=== PATIENT | male | born 1945 | race Caucasian/White ===

== ENCOUNTER 2016-03-27 10:52 | Inpatient (IN) | payer MEDICARE ==
--- NOTE | 2016-03-27 11:35 | ED ---
SOB HPI - General Chief Complaint: Shortness of Breath Stated Complaint: SOB Time Seen by Provider: 03/27/16 11:21 Source: EMS Mode of arrival: EMS Limitations: no limitations - History of Present Illness Initial Comments: Patient is a 70-year-old man who has history of previous COPD and possibly also CHF who states that over the past probably 2 weeks he's finding he has increasing exertional dyspnea and over the past few days has not been able to sleep at night. He states when he tries to sleep he wakes up with shortness of breath. He states that through most the day he is fine but between particularly 3 AM and 9 AM pain is very short of breath. He is not able lie flat. He denies fever or chill, cough, chest pain, leg pain or swelling, change in urination. No melena or bloody stool Complaint: shortness of breath -: days(s) Severity: moderate Consistency: intermittent Improves With: nothing Worsens With: lying flat Known History Of: COPD Associated Symptoms: denies other symptoms Treatments Prior to Arrival: oxygen - Related Data Home Oxygen Therapy: Yes Home Medications Medication Instructions Recorded Confirmed Aspirin 81 mg PO DAILY 06/27/13 03/27/16 Lansoprazole 30 mg PO QA 06/27/13 03/27/16 Metoprolol Succinate [Toprol XL] 50 mg PO QA 06/27/13 03/27/16 Pravastatin Sodium [Pravachol] 80 mg PO DAILY 06/27/13 03/27/16 Amiodarone HCl 200 mg PO QA 06/28/13 03/27/16 Furosemide [Lasix] 40 mg PO AC-SUPPER 11/23/15 03/27/16 Furosemide [Lasix] 80 mg PO QAM 11/23/15 03/27/16 Montelukast [Singulair] 10 mg PO HS 11/23/15 03/27/16 Acetaminophen Tab [Tylenol Tab] 975 mg PO Q4H PRN 03/27/16 03/27/16 sitaGLIPtin [Januvia] 100 mg PO DAILY 03/27/16 03/27/16 Allergies Allergy/AdvReac Type Severity Reaction Status Date / Time Penicillins Allergy Rash/Hives Verified 03/27/16 11:26 Review of Systems ROS Statement: Those systems with pertinent positive or pertinent negative responses have been documented in the HPI. ROS Other: All systems not noted in ROS Statement are negative. Constitutional: Denies: fever, chills, weakness Respiratory: Reports: cough, dyspnea, wheezes. Denies: hemoptysis, stridor Cardiovascular: Reports: orthopnea. Denies: chest pain, palpitations, edema, syncope Gastrointestinal: Denies: abdominal pain, vomiting, diarrhea Musculoskeletal: Denies: back pain Skin: Denies: rash Neurological: Denies: headache Past Medical History Past Medical History: Atrial Fibrillation, Coronary Artery Disease (CAD), GERD/ Reflux, Hyperlipidemia, Hypertension, Myocardial Infarction (CT), Prostate Disorder, Respiratory Disorder Additional Past Medical History / Comment(s): EMPHYSEMA, ENLARGED PROSTATE Last Myocardial Infarction Date:: UNK History of Any Multi-Drug Resistant Organisms: None Reported Past Surgical History: AICD, Cholecystectomy, Coronary Bypass/CABG, Heart Catheterization, Pacemaker, Prostate Surgery Additional Past Surgical History / Comment(s): CABG-3 VESSEL Past Anesthesia/Blood Transfusion Reactions: No Reported Reaction Additional Past Anesthesia/Blood Transfusion Reaction / Comment(s): GETS ANXIOUS WITH ANESTHESIA Type of Cardiac Device: AICD, Unknown Device Placement Date:: UNK initial placement, batteries replaced Oct 2013, LFT CHEST Past Psychological History: No Psychological Hx Reported Smoking Status: Former smoker Past Alcohol Use History: None Reported Additional Past Alcohol Use History / Comment(s): QUIT SMOKING APPROX 2003, STARTED SMOKING AT APPROX 11 YRS OF AGE Past Drug Use History: None Reported - Past Family History Father Family Medical History: Cancer Mother History Unknown: Yes General Exam Limitations: no limitations General appearance: alert, in no apparent distress Head exam: Present: atraumatic, normocephalic Eye exam: Present: normal appearance. Absent: scleral icterus, conjunctival injection Neck exam: Present: normal inspection, full ROM Respiratory exam: Present: wheezes. Absent: respiratory distress, rales, rhonchi, stridor, accessory muscle use, decreased breath sounds, prolonged expiratory Cardiovascular Exam: Present: regular rate, normal rhythm, normal heart sounds. Absent: systolic murmur, diastolic murmur, rubs, gallop GI/Abdominal exam: Present: soft. Absent: distended, tenderness, guarding, rebound, mass Extremities exam: Present: normal inspection, normal capillary refill. Absent: pedal edema, calf tenderness Back exam: Present: normal inspection. Absent: CVA tenderness (R), CVA tenderness (L) Neurological exam: Present: alert Skin exam: Present: warm, dry, intact, normal color. Absent: rash Course Vital Signs 03/27/16 03/27/16 03/27/16 10:58 11:00 12:11 Temperature 97.8 F Pulse Rate 69 58 L Respiratory 18 20 Rate Blood Pressure 162/87 O2 Sat by Pulse 98 Oximetry 03/27/16 03/27/16 03/27/16 12:23 13:00 13:41 Temperature 97.8 F Pulse Rate 57 L 61 57 L Respiratory 20 Rate Blood Pressure 158/89 O2 Sat by Pulse 98 Oximetry 03/27/16 03/27/16 03/27/16 13:49 15:01 15:03 Temperature 98.2 F Pulse Rate 61 68 Respiratory 20 Rate Blood Pressure 108/68 O2 Sat by Pulse 86 L 94 L Oximetry 03/27/16 03/27/16 03/27/16 15:55 15:57 16:00 Temperature 98.3 F Pulse Rate 68 62 Respiratory 18 18 Rate Blood Pressure 147/68 O2 Sat by Pulse 96 Oximetry 03/27/16 16:04 Temperature Pulse Rate 60 Respiratory Rate Blood Pressure O2 Sat by Pulse Oximetry Medical Decision Making - Lab Data Result diagrams: 03/27/16 11:19 03/28/16 02:36 Lab Results 03/27/16 03/27/16 03/27/16 Range/Units 11:19 11:19 11:19 WBC 11.3 H (3.8-10.6) k/uL RBC 5.28 (4.30-5.90) m/uL Hgb 16.6 (13.0-17.5) gm/dL Hct 51.6 (39.0-53.0) % MCV 97.7 (80.0-100.0) fL MCH 31.4 (25.0-35.0) pg MCHC 32.2 (31.0-37.0) g/dL RDW 13.8 (11.5-15.5) % Plt Count 183 (150-450) k/uL Neutrophils % 72 % Lymphocytes % 18 % Monocytes % 6 % Eosinophils % 1 % Basophils % 1 % Neutrophils # 8.2 H (1.3-7.7) k/uL Lymphocytes # 2.0 (1.0-4.8) k/uL Monocytes # 0.7 (0-1.0) k/uL Eosinophils # 0.1 (0-0.7) k/uL Basophils # 0.1 (0-0.2) k/uL D-Dimer 0.53 (<0.60) mg/L FEU Sodium 144 (137-145) mmol/L Potassium 4.4 (3.5-5.1) mmol/L Chloride 101 (98-107) mmol/L Carbon Dioxide 31 H (22-30) mmol/L Anion Gap 12 mmol/L BUN 19 (9-20) mg/dL Creatinine 1.00 (0.66-1.25) mg/dL Est GFR (MDRD) Af Amer >60 (>60 ml/min/1.73 sqM) Est GFR (MDRD) Non-Af >60 (>60 ml/min/1.73 sqM) Glucose 104 H (74-99) mg/dL Estimated Ave Glu mg/dL mg/dL Hemoglobin A1c (4.2-6.1) % Calcium 9.6 (8.4-10.2) mg/dL Total Bilirubin 0.7 (0.2-1.3) mg/dL AST 27 (17-59) U/L ALT 33 (21-72) U/L Alkaline Phosphatase 80 (38-126) U/L Troponin I (0.000-0.034) ng/mL NT-Pro-B Natriuret Pep pg/mL Total Protein 7.3 (6.3-8.2) g/dL Albumin 4.2 (3.5-5.0) g/dL 03/27/16 03/27/16 03/27/16 Range/Units 11:19 11:19 11:19 WBC (3.8-10.6) k/uL RBC (4.30-5.90) m/uL Hgb (13.0-17.5) gm/dL Hct (39.0-53.0) % MCV (80.0-100.0) fL MCH (25.0-35.0) pg MCHC (31.0-37.0) g/dL RDW (11.5-15.5) % Plt Count (150-450) k/uL Neutrophils % % Lymphocytes % % Monocytes % % Eosinophils % % Basophils % % Neutrophils # (1.3-7.7) k/uL Lymphocytes # (1.0-4.8) k/uL Monocytes # (0-1.0) k/uL Eosinophils # (0-0.7) k/uL Basophils # (0-0.2) k/uL D-Dimer (<0.60) mg/L FEU Sodium (137-145) mmol/L Potassium (3.5-5.1) mmol/L Chloride (98-107) mmol/L Carbon Dioxide (22-30) mmol/L Anion Gap mmol/L BUN (9-20) mg/dL Creatinine (0.66-1.25) mg/dL Est GFR (MDRD) Af Amer (>60 ml/min/1.73 sqM) Est GFR (MDRD) Non-Af (>60 ml/min/1.73 sqM) Glucose (74-99) mg/dL Estimated Ave Glu mg/dL 137 mg/dL Hemoglobin A1c 6.4 H (4.2-6.1) % Calcium (8.4-10.2) mg/dL Total Bilirubin (0.2-1.3) mg/dL AST (17-59) U/L ALT (21-72) U/L Alkaline Phosphatase (38-126) U/L Troponin I 0.033 (0.000-0.034) ng/mL NT-Pro-B Natriuret Pep 2010 pg/mL Total Protein (6.3-8.2) g/dL Albumin (3.5-5.0) g/dL - EKG Data -: EKG Interpreted by Me EKG shows normal: intervals (Normal for paced rhythm) Rate: normal (68 bpm) Interpretation: other (Paced rhythm) Disposition Clinical Impression: Congestive heart failure, COPD exacerbation Disposition: ADMITTED IP TO THIS [facility] Condition: Fair
[2016-03-27 11:51] LABS: Basophils # (A) 0.1 k/uL (0-0.2); Basophils % (A) 1 %; CH 31.5; CHCM 32.4; Eosinophils # (A) 0.1 k/uL (0-0.7); Eosinophils % (A) 1 %; HCT 51.6 % (39.0-53.0); HDW 2.35; HGB 16.6 gm/dL (13.0-17.5); Luc # (Auto) 0.28; Luc % (Auto) 3; Lymphocytes % (A) 18 %; MCH 31.4 pg (25.0-35.0); MCHC 32.2 g/dL (31.0-37.0); MCV 97.7 fL (80.0-100.0); Mean Platelet Volume 7.7; Monocytes # (A) 0.7 k/uL (0-1.0); Monocytes % (A) 6 %; Neutrophils # (A) 8.2 k/uL (1.3-7.7); Neutrophils % (A) 72 %; RBC 5.28 m/uL (4.30-5.90); RDW 13.8 % (11.5-15.5); WBC 11.3 k/uL (3.8-10.6); WBC (Perox) 11.13
[2016-03-27] MEDS ORDERED: ALBUTEROL NEBULIZED 2.5 MG/3 ML INHALATION STA ×2 (11:57→13:25)
[2016-03-27] MEDS ORDERED: IPRATROPIUM-ALBUTEROL 3 ML NEB INHALATION STA (11:57)
[2016-03-27 12:03] LABS: ALT 33 U/L (21-72); AST 27 U/L (17-59); Alkaline Phosphatase 80 U/L (38-126); Anion Gap 12 mmol/L; Blood Urea Nitrogen 19 mg/dL (9-20); Calcium 9.6 mg/dL (8.4-10.2); Carbon Dioxide 31 mmol/L (22-30); Chloride 101 mmol/L (98-107); Glucose 104 mg/dL (74-99); Non-African American GFR(MDRD) >60 (>60 ml/min/1.73 sqM); Potassium 4.4 mmol/L (3.5-5.1); Sodium 144 mmol/L (137-145); Total Bilirubin 0.7 mg/dL (0.2-1.3); Total Protein 7.3 g/dL (6.3-8.2)
--- NOTE | 2016-03-27 12:04 | XR ---
EXAMINATION TYPE: XR chest 2V DATE OF EXAM: 03/27/2016 11:48 AM COMPARISON: Prior chest x-ray 21 May 2015 HISTORY: Difficulty breathing, shortness of breath and coronary artery disease TECHNIQUE: Frontal and lateral views of the chest are obtained. FINDINGS: The patient is post median sternotomy, intracardiac defibrillator leads are stable. The he art remains enlarged. Interstitium is mildly increased. There is blunting of the right costophrenic a ngle greater than left. No evident pneumothorax. Prominent lung volume compatible with underlying [employer] D. IMPRESSION: Correlate for pulmonary venous hypertension and interstitial edema in a patient with pre -existing COPD. There may be small effusions, follow-up suggested.
[2016-03-27] MEDS ORDERED: FUROSEMIDE 10 MG/ML 4 ML VIAL IV STA (13:10)
[2016-03-27] MEDS ORDERED: predniSONE 20 MG TAB PO STA (15:15)
[2016-03-27] MEDS ORDERED: FUROSEMIDE 10 MG/ML 4 ML VIAL IV SCH (15:15)
[2016-03-27] MEDS ORDERED: ALBUTEROL NEBULIZED 2.5 MG/3 ML INHALATION PRN (15:15)
[2016-03-27] MEDS: IPRATROPIUM-ALBUTEROL 3 ML NEB INHALATION SCH ×2 (15:57→20:13)
[2016-03-27 17:14] LABS: Glucose,Whole Blood 102 mg/dL (75-99)
[2016-03-27] MEDS: INSULIN LISPRO (humaLOG) 300 UNIT/3 ML VIAL SQ SCH ×2 (17:34→21:29)
[2016-03-27] MEDS: NITROGLYCERIN OINT 1 INCH/GM PACKET TOPICAL SCH ×2 (17:45→21:04)
--- NOTE | 2016-03-27 18:09 | HP ---
DATE OF ADMISSION: The patient is a very pleasant gentleman came in with complaints of shortness of breath that started yesterday. The patient woke up from sleep from that and the patient denied any orthopnea although clearly denied any orthopnea or PND. The patient denied any cough. No fever or chills. The patient feels like his abdomen is bloated. The patient started having shortness of breath secondary to that. The patient denied any cough. Patient denied any headache, dysuria. Patient is afebrile. Patient was found to have very minimally elevated JVD although it may have improved. Patient does have diagnosis of congestive heart failure. Appears to have cardiomyopathy, because of which patient has an AICD from previous dictation from Dr. Benson, I did not find any other cardiology dictations or echocardiogram available at this point of time although patient was told his EF was 50 or 60% by Dr. Hall who follows with the patient as an outpatient. Patient although is on 80 mg in the morning and 40 mg of Lasix ( ). Patient's BNP is 2000. I do not have any previous BNP to compare with at this time. Kidney function is essentially within normal limits. Patient does not have significant wheezing but extreme shortness of breath, although saturating at 98% on 2 liter, does not use any oxygen at home. The patient ( ) on 2 liters. D-dimer is negative because of which I am not obtaining a CT for pulmonary embolism. Patient denied any chest pain. REVIEW OF SYSTEMS: CONSTITUTIONAL: No fever, no malaise, no fatigue. HEENT: No recent visual problems or hearing problems. Denied any sore throat. CARDIOVASCULAR: As mentioned in history of present illness. PULMONARY: No shortness of breath, no cough, no hemoptysis. GASTROINTESTINAL: No diarrhea, no nausea, no vomiting, no abdominal pain. Normoactive bowel sounds. NEUROLOGICAL: No headaches, no weakness, no numbness. HEMATOLOGICAL: Denies any bleeding or petechiae. GENITOURINARY: Denies any burning micturition, frequency, or urgency. MUSCULOSKELETAL/RHEUMATOLOGICAL: Denies any joint pain, swelling, or any muscle pain. ENDOCRINE: Denies any polyuria or polydipsia. The rest of the 14 point review of systems is negative. Home medications include: 1. Aspirin. 2. ( ). 3. Metoprolol. 4. Pravastatin. 5. Amiodarone. 6. Lasix. 7. Montelukast. 8. Acetaminophen. 9. Sitagliptin. ALLERGIES: ALLERGIC TO PENICILLIN. PAST MEDICAL HISTORY: History of atrial fibrillation as per the documentation although patient ( ) the patient has paced rhythm now, not on anticoagulation but the patient is on Amiodarone. Coronary artery disease, gastroesophageal reflux disease. As per the previous dictations patient has ischemic cardiomyopathy, hypertension, benign prostatic hypertrophy, AICD placement, coronary artery bypass grafting, cardiac catheterization, cholecystectomy, prostate surgery, pacemaker placement, CABG, previous ( ) in the past. SOCIAL HISTORY: Former smoker. Quit smoking years ago. Denied any alcohol abuse or any drug abuse. FAMILY HISTORY: Significant for cancer in father. PHYSICAL EXAMINATION: VITAL SIGNS: Temperature 97.2, pulse of 69, respiratory rate 20, pulse of 58 and blood pressure is 162/70, saturating at 98% on room air. GENERAL: The patient is alert and oriented x3, not in any acute distress. Well developed, well nourished. HEENT: Pupils are round and equally reacting to light. EOMI. No scleral icterus. No conjunctival pallor. Normocephalic, atraumatic. No pharyngeal erythema. No thyromegaly. CARDIOVASCULAR: Patient has very minimal JVD elevation about 2 to 3 cm above the sternoclavicular line. I did not hear any clear-cut S3 or any other murmurs, rubs, or gallops. The patient does not have pedal edema. PULMONARY: Chest is clear to auscultation, no wheezing or crackles. ABDOMEN: Soft, nontender, nondistended, normoactive bowel sounds. No palpable organomegaly. MUSCULOSKELETAL: No joint swelling or deformity. EXTREMITIES: No cyanosis, clubbing, or pedal edema. NEUROLOGICAL: Gross neurological examination did not reveal any focal deficits. SKIN: No rashes. LABORATORY DATA: CBC CMP are abnormal for mildly elevated WBC count 11,300. BUN of 19, creatinine of 1.0. Troponins are essentially within normal limits, EKG showed pacer rhythm as mentioned above. ASSESSMENT AND PLAN: 1. Shortness of breath, hypoxic respiratory failure, unsure of the exact etiology, ( ) congestive heart failure exacerbation. Chest x-ray is consistent with that. D. dimer as mentioned earlier. The patient although may have minimal ( ) exacerbation I will start him on 60 b.i.d. of Lasix. I do not believe patient has any chronic obstructive pulmonary disease exacerbation ( ) carries a diagnosis. 2. Chronic obstructive pulmonary disease with without any significant exacerbation and continue present medications. 3. History of myocardial infarction and questionable history of cardiomyopathy. We will obtain an echocardiogram. Also consult Cardiology. 4. Questionable history of atrial fibrillation, not on anticoagulation at this point of time. Patient follows with cardiology so probably can get medical records from them. 5. Hyperlipidemia. 6. Hypertension. 7. Gastroesophageal reflux disease. For above-mentioned chronic medical problems I will go ahead and continue his home medications and patient has coronary artery disease in the past and management for his CAD will continue with his home medications.
[2016-03-27] MEDS: MONTELUKAST 10 MG TAB PO SCH (21:03)
[2016-03-27] MEDS: FUROSEMIDE 10 MG/ML 10 ML VIAL IV SCH (21:04)
[2016-03-27 21:27] LABS: Glucose,Whole Blood 167 mg/dL (75-99)
[2016-03-27 21:44] LABS: Hemoglobin A1C 6.4 % (4.2-6.1)
[2016-03-28] MEDS: IPRATROPIUM-ALBUTEROL 3 ML NEB INHALATION SCH ×5 (02:51→19:11)
[2016-03-28 03:02] LABS: Chloride 99 mmol/L (98-107); Glucose 149 mg/dL (74-99); Potassium 4.5 mmol/L (3.5-5.1); Total Protein 6.9 g/dL (6.3-8.2)
[2016-03-28 03:03] LABS: ALT 38 U/L (21-72); AST 26 U/L (17-59); Alkaline Phosphatase 70 U/L (38-126); Anion Gap 13 mmol/L; Blood Urea Nitrogen 24 mg/dL (9-20); Calcium 9.6 mg/dL (8.4-10.2); Carbon Dioxide 26 mmol/L (22-30); Non-African American GFR(MDRD) >60 (>60 ml/min/1.73 sqM); Sodium 138 mmol/L (137-145); Total Bilirubin 0.6 mg/dL (0.2-1.3)
[2016-03-28 07:17] LABS: Glucose,Whole Blood 126 mg/dL (75-99)
[2016-03-28] MEDS: INSULIN LISPRO (humaLOG) 300 UNIT/3 ML VIAL SQ SCH ×4 (07:27→21:39)
--- NOTE | 2016-03-28 08:35 | ECHOF ---
Referral Reason:CHF MEASUREMENTS -------- HEIGHT: 165.1 cm WEIGHT: 82.1 kg BP: 108/68 IVSd: 1.4 cm (0.6 - 1.1) LVIDd: 5.3 cm (3.9 - 5.3) LVPWd: 1.3 cm (0.6 - 1.1) IVSs: 2.5 cm LVIDs: 4.4 cm LVPWs: 1.7 cm Ao Diam: 2.7 cm (2.0 - 3.7) AV Cusp: 1.5 cm (1.5 - 2.6) LA Diam: 4.6 cm (2.7 - 3.8) MV EXCURSION: 10.412 mm (> 18.000) MV EF SLOPE: 29 mm/s (70 - 150) EPSS: 2.2 cm MV E Kamron: 0.59 m/s MV DecT: 216 ms MV A Kamron: 0.41 m/s MV E/A Ratio: 1.45 RAP: 5.00 mmHg RVSP: 31.92 mmHg FINDINGS -------- Pacerwire seen in RV and RA. AICD This was a technically good study. There is mild concentric left ventricular hypertrophy. There is severe global hypokinesis of LV . The calculated left ventricular ejection fraction is 33%. Overall left ventricular systolic function is severely impaired with, an EF < 20%. The right ventricle is normal in size and function. The left atrium is mildly dilated. The right atrium is normal in size. Aortic valve is trileaflet and is mildly thickened. The mitral valve leaflets are mildly thickened. There is trace mitral regurgitation. Mild tricuspid regurgitation present. The right ventricular systolic pressure, as measured by Doppler, is 31.92mmHg. Pulmonic valve appears structurally normal. The aortic root, ascending aorta and aortic arch are normal. The pericardium is normal. CONCLUSIONS -------- 1. Pacerwire seen in RV and RA. 2. The right atrium is normal in size. 3. Aortic valve is trileaflet and is mildly thickened. 4. The mitral valve leaflets are mildly thickened. 5. There is trace mitral regurgitation. 6. Mild tricuspid regurgitation present. 7. The right ventricular systolic pressure, as measured by Doppler, is 31.92mmHg. 8. Pulmonic valve appears structurally normal. 9. The aortic root, ascending aorta and aortic arch are normal. 10. The pericardium is normal. 11. AICD 12. This was a technically good study. 13. There is mild concentric left ventricular hypertrophy. 14. There is severe global hypokinesis of LV . 15. The calculated left ventricular ejection fraction is 33%. 16. Overall left ventricular systolic function is severely impaired with, an EF < 20%. 17. The right ventricle is normal in size and function. 18. The left atrium is mildly dilated. BUFFING WHEEL OPERATOR: Emma Carrera RDCS
[2016-03-28] MEDS: PANTOPRAZOLE 40 MG TABLET PO SCH (09:16)
[2016-03-28] MEDS: FUROSEMIDE 10 MG/ML 10 ML VIAL IV SCH (09:16)
[2016-03-28] MEDS: LINAGLIPTIN 5 MG TABLET PO SCH (09:16)
[2016-03-28] MEDS: AMIODARONE 200 MG TAB PO SCH (09:16)
[2016-03-28] MEDS: PRAVASTATIN SODIUM 80 MG TAB PO SCH (09:17)
[2016-03-28] MEDS: NITROGLYCERIN OINT 1 INCH/GM PACKET TOPICAL SCH (09:17)
[2016-03-28] MEDS: predniSONE 20 MG TAB PO SCH (09:17)
[2016-03-28] MEDS: METOPROLOL SUCCINATE (ER) 50 MG TAB.ER.24H PO SCH (09:17)
--- NOTE | 2016-03-28 09:34 | P.CRDCN ---
History of Present Illness Consult date: 03/28/16 History of present illness: This is a 70-year-old gentleman with history of coronary artery disease and previous bypass surgery in 2004. He also has ischemic cardiomyopathy and AICD and biventricular device implantation who follows with Dr. VC Hall regularly. Patient also had a left carotid endarterectomy in the past. Patient is now admitted to the hospital with complaints of increasing shortness of breath of one to 2 weeks' duration. Treatment as an outpatient was unsuccessful. On admission patient was found to be in congestive heart failure with evidence of of elevated BNP. Patient was given IV Lasix with improvement of his symptoms. Patient's Lasix dose was recently cut back because of increasing BUN/ creatinine. Patient is also taken off the lisinopril because of low blood pressure and dizziness. At this point and his Lasix could be converted to by mouth Lasix and probably should take 80 mg by mouth twice a day. We'll start him on lisinopril 2.5 mg daily. I will discontinue Nitropaste. Increase activity as tolerated. If he remains stable possible discharge within next 24 hours. His EKG showed pacer rhythm. Review of Systems REVIEW OF SYSTEMS: CONSTITUTIONAL:. Patient is doing well. No complaints of fever or chills EYES: Denies diplopia, blurring of vision EARS, NOSE, MOUTH, THROAT: Denies headaches, denies sore throat. CARDIOVASCULAR: As per HPI RESPIRATORY: Denies shortness of breath, denies cough. GASTROINTESTINAL: Denies change in appetite, denies abdominal pain, denies diarrhea GENITOURINARY: Denies hematuria, denies infections. MUSKULOSKELETAL: Denies pain, denies swelling. Denies any cramps or claudication INTEGUMENTARY: Denies rash, denies eczema. NEUROLOGICAL: Denies focal weakness, or visual disturbance. Denies any dizziness or syncope PSYCHIATRIC: Denies anxiety, denies depression. HEMATOLOGIC/LYMPHATIC: Denies any bleeding, denies enlarged lymph nodes. Past Medical History Past Medical History: Atrial Fibrillation, Coronary Artery Disease (CAD), GERD/ Reflux, Hyperlipidemia, Hypertension, Myocardial Infarction ([place]), Prostate Disorder, Respiratory Disorder Additional Past Medical History / Comment(s): EMPHYSEMA, ENLARGED PROSTATE Last Myocardial Infarction Date:: UNK History of Any Multi-Drug Resistant Organisms: None Reported Past Surgical History: AICD, Cholecystectomy, Coronary Bypass/CABG, Heart Catheterization, Pacemaker, Prostate Surgery Additional Past Surgical History / Comment(s): CABG-3 VESSEL Past Anesthesia/Blood Transfusion Reactions: No Reported Reaction Additional Past Anesthesia/Blood Transfusion Reaction / Comment(s): GETS ANXIOUS WITH ANESTHESIA Type of Cardiac Device: AICD, Unknown Device Placement Date:: UNK initial placement, batteries replaced Oct 2013, LFT CHEST Past Psychological History: No Psychological Hx Reported Additional Psychological History / Comment(s): PT SERVED IN [employer] WHEN HE LIVED IN [facility]. RETIRED FROM WORKING IN [employer]. 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 RECIEVES NO OUTSIDE SERVICES, USES NO CANE OR WALKER AND [place]. Smoking Status: Former smoker Past Alcohol Use History: None Reported Additional Past Alcohol Use History / Comment(s): QUIT SMOKING APPROX 2003, STARTED SMOKING AT APPROX 11 YRS OF AGE Past Drug Use History: None Reported - Past Family History Mother History Unknown: Yes Father Family Medical History: Cancer Medications and Allergies Home Medications Medication Instructions Recorded Confirmed Type Aspirin 81 mg PO DAILY 06/27/13 03/27/16 History Lansoprazole 30 mg PO QAM 06/27/13 03/27/16 History Metoprolol Succinate [Toprol XL] 50 mg PO QAM 06/27/13 03/27/16 History Pravastatin Sodium [Pravachol] 80 mg PO DAILY 06/27/13 03/27/16 History Amiodarone HCl 200 mg PO QAM 06/28/13 03/27/16 History Furosemide [Lasix] 40 mg PO AC-SUPPER 11/23/15 03/27/16 History Furosemide [Lasix] 80 mg PO QAM 11/23/15 03/27/16 History Montelukast [Singulair] 10 mg PO HS 11/23/15 03/27/16 History Acetaminophen Tab [Tylenol Tab] 975 mg PO Q4H PRN 03/27/16 03/27/16 History sitaGLIPtin [Januvia] 100 mg PO DAILY 03/27/16 03/27/16 History Allergies Allergy/AdvReac Type Severity Reaction Status Date / Time Penicillins Allergy Rash/Hives Verified 03/27/16 11:26 Physical Exam Vitals: Vital Signs Temp Pulse Pulse Pulse Resp BP BP 03/28/16 08:51 68 03/28/16 08:39 68 03/28/16 07:00 97.6 F 78 19 119/76 03/28/16 03:00 62 03/28/16 02:51 64 03/28/16 00:00 18 03/27/16 23:00 97.8 F 74 16 03/27/16 20:24 64 03/27/16 20:13 64 03/27/16 16:04 60 03/27/16 16:00 18 03/27/16 15:57 62 03/27/16 15:55 98.3 F 68 18 147/68 Pulse Ox 03/28/16 08:51 03/28/16 08:39 03/28/16 07:00 92 L 03/28/16 03:00 03/28/16 02:51 03/28/16 00:00 03/27/16 23:00 94 L 03/27/16 20:24 03/27/16 20:13 03/27/16 16:04 03/27/16 16:00 03/27/16 15:57 03/27/16 15:55 96 Intake and Output 03/27/16 03/28/16 03/28/16 22:59 06:59 14:59 Other: # Voids 1 3 Weight 82 kg GENERAL EXAM: Patient is alert and oriented and doesn't appear to be in any acute distress HEENT: Normocephalic. Normal reaction of pupils, equal size, normal range of extraocular motion. No erythema or exudates in the throat. NECK: No masses, no nuchal rigidity. CHEST: No chest wall deformity. LUNGS: Diminished breath sounds at bases and a few rales HEART: S1 and S2 normal with no audible mumurs or gallops. Regular rhythm, femorals equal on both sides.. ABDOMEN: No hepatosplenomegaly, normal bowel sounds, no guarding or rigidity. SKIN: No rashes CENTRAL NERVOUS SYSTEM: No focal deficits. EXTREMITIES: No cyanosis, clubbing or edema. Results 03/27/16 11:19 03/28/16 02:36 Cardiac Enzymes 03/27/16 03/28/16 03/28/16 Range/Units 19:57 02:36 02:36 AST 26 (17-59) U/L Troponin I 0.027 0.020 (0.000-0.034) ng/mL Comprehensive Metabolic Panel 03/28/16 Range/Units 02:36 Sodium 138 (137-145) mmol/L Potassium 4.5 (3.5-5.1) mmol/L Chloride 99 (98-107) mmol/L Carbon Dioxide 26 (22-30) mmol/L BUN 24 H (9-20) mg/dL Creatinine 1.00 (0.66-1.25) mg/dL Glucose 149 H (74-99) mg/dL Calcium 9.6 (8.4-10.2) mg/dL AST 26 (17-59) U/L ALT 38 (21-72) U/L Alkaline Phosphatase 70 (38-126) U/L Total Protein 6.9 (6.3-8.2) g/dL Albumin 4.0 (3.5-5.0) g/dL Current Medications Generic Name Dose Route Start Last Admin Trade Name Freq PRN Reason Stop Dose Admin Albuterol Sulfate 2.5 mg 03/27/16 15:15 Ventolin Nebulized INHALATION Q4H PRN Dyspnea Albuterol/Ipratropium 3 ml 03/27/16 15:15 03/28/16 08:39 Duoneb 0.5 Mg-3 Mg/3 Ml Soln INHALATION 3 ml RT-Q6H LALA Administration Amiodarone HCl 200 mg 03/28/16 09:00 03/28/16 09:16 Cordarone PO 200 mg QAM LALA Administration Aspirin 325 mg 03/28/16 15:13 Aspirin PO DAILY LALA Furosemide 60 mg 03/27/16 21:00 03/28/16 09:16 Lasix IV 60 mg Q12H LALA Administration Insulin Human Lispro 0 unit 03/27/16 17:30 03/28/16 07:27 Humalog SQ Not Given ACHS [facility] Protocol Linagliptin 5 mg 03/28/16 09:00 03/28/16 09:16 Tradjenta PO 5 mg DAILY LALA Administration Lisinopril 2.5 mg 03/28/16 09:30 Zestril PO DAILY [facility] Metoprolol Succinate 50 mg 03/28/16 09:00 03/28/16 09:17 Toprol Xl PO 50 mg QAM LALA Administration Montelukast Sodium 10 mg 03/27/16 21:00 03/27/16 21:03 Singulair PO 10 mg HS LALA Administration Pantoprazole Sodium 40 mg 03/28/16 07:30 03/28/16 09:16 Protonix PO 40 mg AC-[id number] LALA Administration Pravastatin Sodium 80 mg 03/28/16 09:00 03/28/16 09:17 Pravachol PO 80 mg DAILY LALA Administration Prednisone 60 mg 03/28/16 09:00 03/28/16 09:17 PO 60 mg DAILY LALA Administration Sodium Chloride 10 ml 03/27/16 21:00 03/28/16 09:17 Saline Flush IV 10 ml BID LALA Administration Intake and Output 03/27/16 03/28/16 03/28/16 22:59 06:59 14:59 Other: # Voids 1 3 Weight 82 kg 03/28/16 02:36 EKG Interpretations (text) Pacemaker rhythm Assessment and Plan (1) Congestive heart failure Status: Acute (2) AICD (automatic cardioverter/defibrillator) present Status: Acute (3) HTN (hypertension) Status: Acute (4) Hx of CABG Status: Acute (5) Hyperlipemia Status: Acute (6) Ischemic cardiomyopathy Status: Acute (7) S/P carotid endarterectomy Status: Acute Plan: This patient is admitted with increasing shortness of breath and exacerbation of systolic congestive heart failure. Patient is responding to IV Lasix. I will switch to by mouth Lasix 80 mg by mouth twice a day. We'll also start him on lisinopril 2.5 mg. We'll follow his BMP closely. Further recommendations depend upon the clinical course. Prognosis is guarded
[2016-03-28] MEDS: LISINOPRIL 2.5 MG TAB PO SCH (10:28)
[2016-03-28 11:31] LABS: Glucose,Whole Blood 94 mg/dL (75-99)
[2016-03-28] MEDS: ASPIRIN 325 MG TAB PO SCH (15:38)
[2016-03-28] MEDS: FUROSEMIDE 80 MG TAB PO SCH (15:39)
[2016-03-28 16:19] LABS: Glucose,Whole Blood 228 mg/dL (75-99)
[2016-03-28] MEDS: MONTELUKAST 10 MG TAB PO SCH (20:17)
[2016-03-28 21:27] LABS: Glucose,Whole Blood 174 mg/dL (75-99)
[2016-03-28 21:34] VITALS: RESP 16
--- NOTE | 2016-03-28 21:46 | PN ---
Patient is a 70-year-old gentleman admitted with CHF exacerbation, patient was found to have ejection fraction of around 20%. The patient does have an AICD in place. Patient is feeling better and wanted to be discharged. The patient was started on low dose Lisinopril. The patient in the past did not tolerate Lisinopril. The patient was hypotensive. The patient is otherwise clinically doing well. Kidney function is stable. We will continue to ( ) the patient's Lasix dose was increased to ( ) by cardiology. REVIEW OF SYSTEMS: CARDIOVASCULAR: No chest pain, no orthopnea, no PND, no palpitations. PULMONARY: Denied any shortness of breath. No cough or hemoptysis. GASTROINTESTINAL: No diarrhea, nausea or vomiting. No abdominal pain. Normoactive bowel sounds. NEUROLOGIC: No headaches, no weakness, no numbness. PHYSICAL EXAMINATION: VITAL SIGNS: Temperature 96.2, pulse of 68, respiratory rate of 18, blood pressure 152/69, saturating at 95% on 2 L O2 by nasal cannula. GENERAL: The patient is alert and oriented x3, not in any acute distress. Well developed, well nourished. HEENT: Pupils are round and equally reacting to light. EOMI. No scleral icterus. No conjunctival pallor. Normocephalic, atraumatic. No pharyngeal erythema. No thyromegaly. CARDIOVASCULAR: S1 and S2 present. Patient still has minimal elevated JVD but improved compared to yesterday. I did not hear any S3 or murmur, rubs, or gallops. Pedal edema improved. PULMONARY: Chest is clear to auscultation, no wheezing or crackles. ABDOMEN: Soft, nontender, nondistended, normoactive bowel sounds. No palpable organomegaly. MUSCULOSKELETAL: No joint swelling or deformity. EXTREMITIES: No cyanosis, clubbing, or pedal edema. NEUROLOGICAL: Gross neurological examination did not reveal any focal deficits. SKIN: No rashes. LABORATORY DATA: Patient's kidney function remains stable with minimally elevated compared to yesterday to 24, hemoglobin A1C is 6.4. Patient does have leukocytosis, which appears to be reactive. ASSESSMENT AND PLAN: 1. Shortness of breath and acute hypoxic respiratory failure exacerbation secondary to chronic systolic dysfunction with acute exacerbation with improved symptoms at this point of time. 2. Chronic obstructive pulmonary disease without any acute exacerbation. 3. Acute myocardial infarction. The patient does have ischemic cardiomyopathy. 4. Hyperlipidemia. 5. Hypertension. 6. Gastroesophageal reflux disease. PLAN: Continue with diuretic therapy. Continue close clinical monitoring I's and O's. Possibility of discharge tomorrow if patient continues to improve.
[2016-03-29 07:34] LABS: Glucose,Whole Blood 107 mg/dL (75-99)
[2016-03-29] MEDS: INSULIN LISPRO (humaLOG) 300 UNIT/3 ML VIAL SQ SCH ×2 (07:48→12:52)
[2016-03-29 08:18] VITALS: BP 126/71; PULSE 72; TEMP 96.6
[2016-03-29] MEDS: PANTOPRAZOLE 40 MG TABLET PO SCH (08:30)
[2016-03-29] MEDS: AMIODARONE 200 MG TAB PO SCH (08:30)
[2016-03-29] MEDS: LINAGLIPTIN 5 MG TABLET PO SCH (08:31)
[2016-03-29] MEDS: METOPROLOL SUCCINATE (ER) 50 MG TAB.ER.24H PO SCH (08:31)
[2016-03-29] MEDS: PRAVASTATIN SODIUM 80 MG TAB PO SCH (08:31)
[2016-03-29] MEDS: ASPIRIN 325 MG TAB PO SCH (08:31)
[2016-03-29] MEDS: FUROSEMIDE 80 MG TAB PO SCH (08:31)
[2016-03-29] MEDS: LISINOPRIL 2.5 MG TAB PO SCH (08:31)
[2016-03-29] MEDS: predniSONE 20 MG TAB PO SCH (08:32)
[2016-03-29 08:59] LABS: ALT 32 U/L (21-72); AST 25 U/L (17-59); Alkaline Phosphatase 72 U/L (38-126); Anion Gap 13 mmol/L; Blood Urea Nitrogen 25 mg/dL (9-20); Calcium 9.6 mg/dL (8.4-10.2); Carbon Dioxide 28 mmol/L (22-30); Chloride 100 mmol/L (98-107); Glucose 144 mg/dL (74-99); Non-African American GFR(MDRD) >60 (>60 ml/min/1.73 sqM); Potassium 4.3 mmol/L (3.5-5.1); Sodium 141 mmol/L (137-145); Total Bilirubin 0.5 mg/dL (0.2-1.3); Total Protein 6.9 g/dL (6.3-8.2)
[2016-03-29] MEDS: IPRATROPIUM-ALBUTEROL 3 ML NEB INHALATION SCH ×2 (08:59→12:57)
--- NOTE | 2016-03-29 11:34 | P.PN ---
Subjective Principal diagnosis: CHF This is a 70-year-old gentleman with history of coronary artery disease and previous bypass surgery in 2004. He also has ischemic cardiomyopathy and AICD and biventricular device implantation who follows with Dr. VC Hall regularly. Patient also had a left carotid endarterectomy in the past. Patient is now admitted to the hospital with complaints of increasing shortness of breath of one to 2 weeks' duration. He diuresed well on IV Lasix, was changed over to oral diuretics yesterday. Recently the patient was taken off of lisinopril because of hypotension and dizziness. He was added back on a small dose of lisinopril yesterday by Dr. Fuentes. Potassium today 4.3, creatinine 1.08. Arrangements are being made for the patient to be discharged home today. Objective - Vital Signs Vital signs: Vital Signs Temp 96.6 F L 03/29/16 07:00 Pulse 72 03/29/16 07:00 Resp 16 03/29/16 07:00 BP 126/71 03/29/16 07:00 Pulse Ox 96 03/29/16 07:00 Intake & Output 03/28/16 03/29/16 03/29/16 18:59 06:59 18:59 Intake Total 1000 Balance 1000 Weight 82 kg 83 kg Intake: Oral 1000 Other: Voiding Method Toilet Toilet # Voids 4 1 - Exam PHYSICAL EXAMINATION: HEENT: Head is atraumatic, normocephalic. Pupils equal, round. Neck is supple. There is no elevated jugular venous pressure. HEART EXAMINATION: Heart S1, S2 normal. No murmur or gallop heard. CHEST EXAMINATION: Lungs are clear to auscultation and precussion. No chest wall tenderness is noted on palpation or with deep breathing. ABDOMEN: Soft, nontender. Bowel sounds are heard. No organomegaly noted. EXTREMITIES: 2+ peripheral pulses with no evidence of peripheral edema and no calf tenderness noted. NEUROLOGIC patient is awake, alert and oriented -3. . - Labs CBC & Chem 7: 03/27/16 11:19 03/29/16 08:01 Labs: Abnormal Lab Results - Last 24 Hours (Table) 03/28/16 03/28/16 03/29/16 Range/Units 16:17 21:22 07:01 BUN (9-20) mg/dL Glucose (74-99) mg/dL POC Glucose (mg/dL) 228 H 174 H 107 H (75-99) mg/dL 03/29/16 Range/Units 08:01 BUN 25 H (9-20) mg/dL Glucose 144 H (74-99) mg/dL POC Glucose (mg/dL) (75-99) mg/dL Assessment and Plan (1) Systolic CHF, acute on chronic Status: Acute (2) COPD exacerbation Status: Acute (3) AICD (automatic cardioverter/defibrillator) present Status: Acute (4) HTN (hypertension) Status: Acute (5) Hx of CABG Status: Acute (6) Hyperlipemia Status: Acute (7) Ischemic cardiomyopathy Status: Acute (8) S/P carotid endarterectomy Status: Acute Plan: From cardiology's perspective, patient may be able to be discharged home once cleared by the primary. already has a follow-up appointment at cardiology office with Dr. VC Hall next week. He's been advised to keep that. DNP note has been reviewed, I agree with a documented findings and plan of care. Patient was seen and examined.
[2016-03-29 11:49] LABS: Glucose,Whole Blood 102 mg/dL (75-99)
--- NOTE | 2016-03-29 18:58 | DS ---
DATE OF ADMISSION: 03/27/2016 DATE OF DISCHARGE: 03/29/2016 Mr. Hubbard is a 70-year-old gentleman with a past medical history of coronary artery disease, status post coronary artery bypass graft, ischemic cardiomyopathy, status post AICD and biventricular device implantation who came into the hospital with a chief complaint of difficulty in breathing. He follows with Dr. Dav Hall on a regular basis. Patient was treated for acute CHF exacerbation and was given IV Lasix after which he showed significant improvement. Initially he did receive a dose of steroids also as it is unclear whether it is congestive heart failure or chronic obstructive pulmonary disease exacerbation but with IV Lasix he showed significant improvement and has been cleared by cardiology to be discharged home today. Procedures that he had using her hospital stay: Echocardiogram showing ejection fraction of 33% and severe global hypokinesis of the left ventricle. Consultants: Cardiology. DISCHARGE DIAGNOSES: 1. Acute on chronic systolic congestive heart failure exacerbation. 2. Acute chronic obstructive pulmonary disease exacerbation. 3. Hypertension. 4. History of coronary artery disease, status post coronary artery bypass graft. 5. Ischemic cardiomyopathy. 6. Status post carotid artery endarterectomy. 7. Hypertension. 8. Hyperlipidemia. 9. History of prostate disorder. 10. Gastroesophageal reflux disease. Patient's discharge medications: He is discharged on: 1. Aspirin 81 mg p.o. daily. 2. Lansoprazole 30 mg p.o. q.a.m. 3. Toprol-XL 50 mg p.o. q.a.m. 4. Pravastatin 80 mg p.o. daily. 5. Amiodarone 200 mg p.o. q.a.m. 6. Lasix 80 mg p.o. q.a.m. 7. Singulair 10 mg p.o. q.h.s. 8. Tylenol 500 mg p.o. q.4 hours p.r.n. for fever. 9. Januvia 100 mg p.o. daily. 10. Restoril 2.5 mg p.o. daily. Follow-up: The patient is advised to follow up with his primary care physician, Dr. Elissa Mccrary within 1 to [address] Dav Hall in two weeks. Activity as tolerated. Diet: Cardiac and diabetic diet. Patient is being discharged in a stable condition home today. More than 35 minutes spent towards discharge of the patient. MTDD
== END 2016-03-29 14:08 | disposition home or self-care (01) | DRG 190 ==
LOC: EC 10:52 → 4MS4W 15:12
PROVIDERS: ADMIT Hospitalist; ATTEND Hospitalist
DX: J44.1 Chronic obstructive pulmonary disease with (acute) exacerbation (principal); I50.23 Acute on chronic systolic (congestive) heart failure; J96.01 Acute respiratory failure with hypoxia; I95.9 Hypotension, unspecified; I48.91 Unspecified atrial fibrillation; Z95.1 Presence of aortocoronary bypass graft; I25.5 Ischemic cardiomyopathy; T50.1X5A Adverse effect of loop [high-ceiling] diuretics, initial encounter; T46.4X5A Adverse effect of angiotensin-converting-enzyme inhibitors, initial encounter; D72.829 Elevated white blood cell count, unspecified; E78.5 Hyperlipidemia, unspecified; I25.10 Atherosclerotic heart disease of native coronary artery without angina pectoris; I25.2 Old myocardial infarction; K21.9 Gastro-esophageal reflux disease without esophagitis; N40.0 Benign prostatic hyperplasia without lower urinary tract symptoms; Z95.810 Presence of automatic (implantable) cardiac defibrillator; Z79.82 Long term (current) use of aspirin; Z87.891 Personal history of nicotine dependence; Z80.9 Family history of malignant neoplasm, unspecified; Z86.79 Personal history of other diseases of the circulatory system; Z88.0 Allergy status to penicillin; Z79.84 Long term (current) use of oral hypoglycemic drugs; Z79.1 Long term (current) use of non-steroidal anti-inflammatories (NSAID); Z79.899 Other long term (current) drug therapy; Z90.49 Acquired absence of other specified parts of digestive tract
CPT/HCPCS: 36415; 71020; 80053; 83036; 83880; 84484; 85025; 85379; 93005; 93306; 94640; 96374; 99285

== ENCOUNTER 2016-06-25 16:44 | Observation (INO) | payer MEDICARE ==
[~2016-06-25 16:44] MED LIST: MAGNESIUM CITRATE 296 ML BOTTLE ONE
[2016-06-25] MEDS ORDERED: SODIUM CHLORIDE 0.9% 1,000 ML IV STA (17:29)
--- NOTE | 2016-06-25 17:31 | ED ---
General Adult HPI - General Chief complaint: Abdominal Pain Stated complaint: Diff breathing Time Seen by Provider: 06/25/16 17:21 Source: patient, family, RN notes reviewed Mode of arrival: wheelchair Limitations: no limitations - History of Present Illness Initial comments: Patient 71-year-old male who presents emergency room today with chief complaint of increased constipation. He does admit that he has not had a bowel movement in 10 days. States he went to a GI specialist and started him on MiraLAX. States been taking this with no relief. He does admit that he's had occasional flatulence. Patient denies any abdominal pain. He does admit that it causes a fullness sensation and feels that he cannot get a deep breath. He does admit that he uses oxygen at home 2 L but is been using it during the day as well because he feels like he cannot fully expand his lungs do this - Related Data Home Medications Medication Instructions Recorded Confirmed Aspirin 81 mg PO HS 06/27/13 06/25/16 Lansoprazole 30 mg PO QAM 06/27/13 06/25/16 Metoprolol Succinate [Toprol XL] 50 mg PO QAM 06/27/13 06/25/16 Pravastatin Sodium [Pravachol] 80 mg PO HS 06/27/13 06/25/16 Amiodarone HCl 200 mg PO QAM 06/28/13 06/25/16 Furosemide [Lasix] 40 mg PO QAM 11/23/15 06/25/16 Montelukast [Singulair] 10 mg PO HS 11/23/15 06/25/16 sitaGLIPtin [Januvia] 100 mg PO DAILY 03/27/16 06/25/16 Furosemide [Lasix] 20 mg PO DAILY@1600 06/25/16 06/25/16 [employer] Allergy Medication Otc 1 tab PO QAM 06/25/16 06/25/16 Lisinopril [Zestril] 2.5 mg PO HS 06/25/16 06/25/16 Polyethylene Glycol 3350 [Miralax] 17 gm PO BID 06/25/16 06/25/16 Allergies Allergy/AdvReac Type Severity Reaction Status Date / Time Penicillins Allergy Rash/Hives Verified 06/25/16 17:07 Review of Systems ROS Statement: Those systems with pertinent positive or pertinent negative responses have been documented in the HPI. ROS Other: All systems not noted in ROS Statement are negative. Past Medical History Past Medical History: Atrial Fibrillation, Coronary Artery Disease (CAD), GERD/ Reflux, Hyperlipidemia, Hypertension, Myocardial Infarction ([place]), Prostate Disorder, Respiratory Disorder Additional Past Medical History / Comment(s): EMPHYSEMA, ENLARGED PROSTATE, constipation Last Myocardial Infarction Date:: UNK History of Any Multi-Drug Resistant Organisms: None Reported Past Surgical History: AICD, Cholecystectomy, Coronary Bypass/CABG, Heart Catheterization, Pacemaker, Prostate Surgery Additional Past Surgical History / Comment(s): CABG-3 VESSEL Past Anesthesia/Blood Transfusion Reactions: No Reported Reaction Additional Past Anesthesia/Blood Transfusion Reaction / Comment(s): GETS ANXIOUS WITH ANESTHESIA Type of Cardiac Device: AICD, Unknown Device Placement Date:: UNK initial placement, batteries replaced Oct 2013, LFT CHEST Past Psychological History: No Psychological Hx Reported Additional Psychological History / Comment(s): PT SERVED IN [employer] WHEN HE LIVED IN [facility]. RETIRED FROM WORKING IN [employer]. 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 RECIEVES NO OUTSIDE SERVICES, USES NO CANE OR [place]ALK[place] AND [place]. Smoking Status: Former smoker Past Alcohol Use History: None Reported Additional Past Alcohol Use History / Comment(s): QUIT SMOKING APPROX 2003, STARTED SMOKING AT APPROX 11 YRS OF AGE Past Drug Use History: None Reported - Past Family History Mother History Unknown: Yes Father Family Medical History: Cancer General Exam Limitations: no limitations Course Vital Signs 06/25/16 06/25/16 06/25/16 16:49 17:55 20:17 Temperature 98.2 F 98.8 F Pulse Rate 68 72 75 Respiratory 16 18 26 H Rate Blood Pressure 169/76 159/87 183/99 O2 Sat by Pulse 97 96 98 Oximetry 06/25/16 06/25/16 20:35 20:46 Temperature Pulse Rate 65 64 Respiratory Rate Blood Pressure O2 Sat by Pulse Oximetry EKG Findings - EKG Comments: EKG Findings:: EKG performed at 1816: Shows paced rhythm at 68 beats per minute. IA interval 194. QRS 186. QT/QTc 502/533. No acute ST changes. Medical Decision Making - Medical Decision Making Patient reexamined at this time still having increased shortness breath. Given breathing treatments here the emergency room with little relief. Patient's chest x-rays negative. X-ray the abdomen is nonspecific no sign of obstruction. Patient's abdomen soft nontender. Was given enema here the emergency room is not been unable to have bowel movement. Patient reexamined and abdomen is still soft nontender. Rectal exam shows no sign of impaction. Patient will be admitted for COPD exacerbation started on breathing treatments and steroids. We'll consult GI who we saw earlier in the week for his constipation. We'll continue patient on laxatives at this time. - Lab Data Result diagrams: 06/25/16 17:36 06/25/16 17:36 Lab Results 06/25/16 06/25/16 06/25/16 Range/Units 17:36 17:36 17:36 WBC 10.2 (3.8-10.6) k/uL RBC 4.71 (4.30-5.90) m/uL Hgb 15.0 (13.0-17.5) gm/dL Hct 45.4 (39.0-53.0) % MCV 96.3 (80.0-100.0) fL MCH 31.8 (25.0-35.0) pg MCHC 33.0 (31.0-37.0) g/dL RDW 14.1 (11.5-15.5) % Plt Count 174 (150-450) k/uL Neutrophils % 71 % Lymphocytes % 18 % Monocytes % 7 % Eosinophils % 1 % Basophils % 0 % Neutrophils # 7.2 (1.3-7.7) k/uL Lymphocytes # 1.8 (1.0-4.8) k/uL Monocytes # 0.7 (0-1.0) k/uL Eosinophils # 0.2 (0-0.7) k/uL Basophils # 0.0 (0-0.2) k/uL PT (9.0-12.0) sec INR (<1.1) APTT (22.0-30.0) sec Sodium 138 (137-145) mmol/L Potassium 4.6 (3.5-5.1) mmol/L Chloride 100 (98-107) mmol/L Carbon Dioxide 29 (22-30) mmol/L Anion Gap 9 mmol/L BUN 14 (9-20) mg/dL Creatinine 0.90 (0.66-1.25) mg/dL Est GFR (MDRD) Af Amer >60 (>60 ml/min/1.73 sqM) Est GFR (MDRD) Non-Af >60 (>60 ml/min/1.73 sqM) Glucose 134 H (74-99) mg/dL Calcium 9.2 (8.4-10.2) mg/dL Total Bilirubin 0.9 (0.2-1.3) mg/dL AST 40 (17-59) U/L ALT 32 (21-72) U/L Alkaline Phosphatase 89 (38-126) U/L Total Creatine Kinase 101 (55-170) U/L CK-MB (CK-2) 3.7 H* (0.0-2.4) ng/mL CK-MB (CK-2) Rel Index 3.7 Troponin I 0.026 (0.000-0.034) ng/mL Total Protein 6.8 (6.3-8.2) g/dL Albumin 3.9 (3.5-5.0) g/dL Lipase 41 (23-300) U/L 06/25/16 Range/Units 17:36 WBC (3.8-10.6) k/uL RBC (4.30-5.90) m/uL Hgb (13.0-17.5) gm/dL Hct (39.0-53.0) % MCV (80.0-100.0) fL MCH (25.0-35.0) pg MCHC (31.0-37.0) g/dL RDW (11.5-15.5) % Plt Count (150-450) k/uL Neutrophils % % Lymphocytes % % Monocytes % % Eosinophils % % Basophils % % Neutrophils # (1.3-7.7) k/uL Lymphocytes # (1.0-4.8) k/uL Monocytes # (0-1.0) k/uL Eosinophils # (0-0.7) k/uL Basophils # (0-0.2) k/uL PT 10.9 (9.0-12.0) sec INR 1.1 (<1.1) APTT 23.3 (22.0-30.0) sec Sodium (137-145) mmol/L Potassium (3.5-5.1) mmol/L Chloride (98-107) mmol/L Carbon Dioxide (22-30) mmol/L Anion Gap mmol/L BUN (9-20) mg/dL Creatinine (0.66-1.25) mg/dL Est GFR (MDRD) Af Amer (>60 ml/min/1.73 sqM) Est GFR (MDRD) Non-Af (>60 ml/min/1.73 sqM) Glucose (74-99) mg/dL Calcium (8.4-10.2) mg/dL Total Bilirubin (0.2-1.3) mg/dL AST (17-59) U/L ALT (21-72) U/L Alkaline Phosphatase (38-126) U/L Total Creatine Kinase (55-170) U/L CK-MB (CK-2) (0.0-2.4) ng/mL CK-MB (CK-2) Rel Index Troponin I (0.000-0.034) ng/mL Total Protein (6.3-8.2) g/dL Albumin (3.5-5.0) g/dL Lipase (23-300) U/L Disposition Clinical Impression: COPD exacerbation, Constipation Disposition: ADMITTED IP TO THIS [facility] Condition: Good Time of Disposition: 21:13
[2016-06-25 17:47] LABS: Basophils % (A) 0 %; CH 31.8; CHCM 33.1; Eosinophils # (A) 0.2 k/uL (0-0.7); Eosinophils % (A) 1 %; HCT 45.4 % (39.0-53.0); HDW 2.58; Luc # (Auto) 0.21; Luc % (Auto) 2; Lymphocytes # (A) 1.8 k/uL (1.0-4.8); Lymphocytes % (A) 18 %; MCH 31.8 pg (25.0-35.0); MCV 96.3 fL (80.0-100.0); Mean Platelet Volume 7.5; Monocytes # (A) 0.7 k/uL (0-1.0); Monocytes % (A) 7 %; Neutrophils # (A) 7.2 k/uL (1.3-7.7); Neutrophils % (A) 71 %; RBC 4.71 m/uL (4.30-5.90); RDW 14.1 % (11.5-15.5); WBC 10.2 k/uL (3.8-10.6)
[2016-06-25 17:56] LABS: INR 1.1 (<1.1); Partial Thromboplastin Time 23.3 sec (22.0-30.0); Prothrombin Time 10.9 sec (9.0-12.0)
[2016-06-25 18:04] LABS: ALT 32 U/L (21-72); AST 40 U/L (17-59); Alkaline Phosphatase 89 U/L (38-126); Anion Gap 9 mmol/L; Blood Urea Nitrogen 14 mg/dL (9-20); Calcium 9.2 mg/dL (8.4-10.2); Carbon Dioxide 29 mmol/L (22-30); Chloride 100 mmol/L (98-107); Glucose 134 mg/dL (74-99); Non-African American GFR(MDRD) >60 (>60 ml/min/1.73 sqM); Potassium 4.6 mmol/L (3.5-5.1); Sodium 138 mmol/L (137-145); Total Bilirubin 0.9 mg/dL (0.2-1.3); Total Protein 6.8 g/dL (6.3-8.2)
--- NOTE | 2016-06-25 18:07 | XR ---
EXAMINATION TYPE: XR chest 2V DATE OF EXAM: 06/25/2016 6:00 PM COMPARISON: March 27, 2016 HISTORY: Dyspnea TECHNIQUE: Frontal and lateral views of the chest are obtained. FINDINGS: There is a new lung pattern when compared to the prior study, a fine reticular pattern of increased density throughout the lungs symmetrically silhouetting the pulmonary S. Agusto to a moder ate degree, with areas of coalescence in the lung bases and particularly so on the right. Bilateral small pleural effusions are evident, greater on the right. Stable moderate enlargement of the cardiac silhouette. Sternal sutures and mediastinal clips and card iac pacemaker noted. No pneumothorax or other abnormal gas collection. Bones and soft tissues are unremarkable. IMPRESSION: RADIOGRAPHIC FINDINGS CONSISTENT WITH CARDIOGENIC PULMONARY EDEMA, ADVANCED INTERSTITIAL PHASE / EARLY ALVEOLAR PHASE. IMPRESSION: No acute cardiopulmonary process.
--- NOTE | 2016-06-25 18:10 | XR ---
EXAMINATION TYPE: XR abdomen complete w decub - 4 views DATE OF EXAM: 06/25/2016 6:00 PM COMPARISON: NONE HISTORY: Constipation and pain TECHNIQUE: Supine, upright, and left side down lateral decubitus views of the abdomen are obtained. FINDINGS: There is no evidence for pneumoperitoneum. The bowel gas pattern is unremarkable as there is air throughout nondilated small and large bowel. No sizeable air fluid levels. No mass effects are seen. No unusual calcifications. IMPRESSION: UNREMARKABLE STUDY.
[2016-06-25 18:20] LABS: Troponin I 0.026 ng/mL (0.000-0.034)
[2016-06-25] MEDS ORDERED: DOCUSATE 100 MG CAP PO STA (18:23)
[2016-06-25 18:27] LABS: Creatine Kinase MB 3.7 ng/mL (0.0-2.4)
[2016-06-25] MEDS ORDERED: IPRATROPIUM-ALBUTEROL 3 ML NEB INHALATION STA (20:24)
[2016-06-25] MEDS ORDERED: POLYETHYLENE GLYCOL 3350 17 GM POWD.PACK PO STA (21:11)
[2016-06-25] MEDS ORDERED: GLYCERIN ADULT SUPPOSITORY 1 EACH RECTAL STA (21:11)
[2016-06-25] MEDS ORDERED: SODIUM CHLORIDE 0.9% 1,000 ML IV ONE (21:13)
[2016-06-25] MEDS ORDERED: methylPREDNISolone SOD SUCCI 125 MG/2 ML VIAL IV STA (21:13)
[2016-06-25] MEDS ORDERED: MAGNESIUM CITRATE 296 ML BOTTLE PO ONE (21:15)
[2016-06-25] MEDS ORDERED: LIDOCAINE VISCOUS 2% 15 ML CUP MUCOUS MEM ONE (21:38)
[2016-06-25] MEDS ORDERED: FUROSEMIDE 40 MG TAB PO STA (21:50)
[2016-06-25 22:33] VITALS: BMI 31.6
[2016-06-25] MEDS ORDERED: MELATONIN 3 MG TABLET PO PRN (23:23)
[2016-06-25] MEDS ORDERED: LEVALBUTEROL NEB 1.25 MG/3 ML AMP INHALATION PRN (23:23)
[2016-06-25] MEDS: IPRATROPIUM-ALBUTEROL 3 ML NEB INHALATION PRN (23:27)
[2016-06-25] MEDS ORDERED: PRAVASTATIN SODIUM 80 MG TAB PO STA (23:29)
[2016-06-25] MEDS ORDERED: LISINOPRIL 2.5 MG TAB PO STA (23:30)
[2016-06-25] MEDS ORDERED: MONTELUKAST 10 MG TAB PO STA (23:30)
[2016-06-25] MEDS ORDERED: ASPIRIN 81 MG CHEW PO STA (23:31)
[2016-06-26] MEDS: methylPREDNISolone SOD SUCCI 125 MG/2 ML VIAL IV SCH ×2 (05:58→10:51)
[2016-06-26 07:39] LABS: Glucose,Whole Blood 180 mg/dL (75-99)
[2016-06-26] MEDS: INSULIN LISPRO (humaLOG) 300 UNIT/3 ML VIAL SQ SCH ×4 (08:44→22:06)
[2016-06-26] MEDS: IPRATROPIUM-ALBUTEROL 3 ML NEB INHALATION PRN ×3 (08:52→20:44)
[2016-06-26] MEDS: SYMBICORT 160-4.5 MCG INHALER INHALATION SCH ×2 (08:52→20:44)
[2016-06-26] MEDS ORDERED: FUROSEMIDE 40 MG TAB PO SCH (09:00)
[2016-06-26] MEDS ORDERED: POLYETHYLENE GLYCOL 3350 17 GM POWD.PACK PO SCH (09:00)
[2016-06-26] MEDS ORDERED: WITCH HAZEL 1 EACH MED..PAD TOPICAL PRN (09:44)
[2016-06-26] MEDS ORDERED: MAGNESIUM HYDROXIDE 2,400 MG/10 ML CUP PO PRN (09:45)
--- NOTE | 2016-06-26 09:58 | P.CONS ---
History of Present Illness - Reason for Consult Consult date: 06/26/16 constipation Requesting physician: Jocelynn Isabel - History of Present Illness 71-year-old male patient Dr. Mccrary with an extensive past medical history including CAD, CABG, [place], hypertension, hyperlipidemia, COPD, cardiac pacemaker, and chronic constipation. Patient has intermittent constipation for more than 6 months. He underwent EGD colonoscopy in November with Dr. Gallagher with no evidence of colorectal neoplasia. Polypectomy performed. Patient was placed on MiraLAX reports increased bloatedness gassiness without passing formed bowel movements. Daughter says he passes a lot of liquid bowel movement but they're looking for more of a bulk type formed bowel movement. Patient states his constipation intermittently worsens. His last bowel movement was about 11 days ago. External hemorrhoid is flared causing discomfort. Plain films of the abdomen reported no evidence of obstruction. He received a suppository in the emergency room, milk of molasses enema, and drink a bottle of citrate of magnesia with passage of flatus and small amount of nonbloody brown liquid stool this morning. Review of Systems Constitutional: Denies fever, chills, sweats, weight gain, or loss. HEENT: Negative for migraines, blurred vision or loss, earaches, drainage, tinnitus, oral mucosal lesions, dysphagia, or odynophagia. Cardiac: Atrial fibrillation. Hypertension. Hyperlipidemia. OK. Cardiac pacemaker. CABG. Respiratory: COPD. Negative for shortness of breath, hemoptysis, cough, or sputum production. Gastrointestinal: See HPI for pertinent findings. Genitourinary: Negative for hematuria, urgency, frequency, polyuria, dysuria, or penile discharge. Musculoskeletal: Negative for muscle aches, swelling, arthritis, and arthralgias. Neurologic: Negative for stroke or TIA. Endocrine: Negative for thyroid problems. Skin: Negative for rash or itching. Psychiatric: Negative history for depression and anxiety All systems: negative (See HPI) Past Medical History Past Medical History: Atrial Fibrillation, Coronary Artery Disease (CAD), GERD/ Reflux, Hyperlipidemia, Hypertension, Myocardial Infarction ([place]), Prostate Disorder, Respiratory Disorder Additional Past Medical History / Comment(s): EMPHYSEMA, ENLARGED PROSTATE, constipation Last Myocardial Infarction Date:: UNK History of Any Multi-Drug Resistant Organisms: None Reported Past Surgical History: AICD, Cholecystectomy, Coronary Bypass/CABG, Heart Catheterization, Pacemaker, Prostate Surgery Additional Past Surgical History / Comment(s): CABG-3 VESSEL Past Anesthesia/Blood Transfusion Reactions: No Reported Reaction Additional Past Anesthesia/Blood Transfusion Reaction / Comm: GETS ANXIOUS WITH ANESTHESIA Type of Cardiac Device: AICD, Unknown Device Placement Date:: UNK initial placement, batteries replaced Oct 2013, LFT CHEST Past Psychological History: No Psychological Hx Reported Additional Psychological History / Comment(s): PT SERVED IN [employer] WHEN HE LIVED IN [facility]. RETIRED FROM WORKING IN [employer]. 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 RECIEVES NO OUTSIDE SERVICES, USES NO CANE OR WALKER AND [place]. Smoking Status: Former smoker Past Alcohol Use History: None Reported Additional Past Alcohol Use History / Comment(s): QUIT SMOKING APPROX 2003, STARTED SMOKING AT APPROX 11 YRS OF AGE Past Drug Use History: None Reported - Past Family History Mother History Unknown: Yes Family Medical History: Diabetes Mellitus, Hypertension Additional Family Medical History / Comment(s): heart issues Father Family Medical History: Cancer Medications and Allergies Home Medications Medication Instructions Recorded Confirmed Type Aspirin 81 mg PO 06/27/13 06/25/16 History Lansoprazole 30 mg PO [facility] 06/27/13 06/25/16 History Metoprolol Succinate [Toprol XL] 50 mg PO QA 06/27/13 06/25/16 History Pravastatin Sodium [Pravachol] 80 mg PO 06/27/13 06/25/16 History Amiodarone HCl 200 mg PO QA 06/28/13 06/25/16 History Furosemide [Lasix] 40 mg PO QAM 11/23/15 06/25/16 History Montelukast [Singulair] 10 mg PO HS 11/23/15 06/25/16 History sitaGLIPtin [Januvia] 100 mg PO DAILY 03/27/16 06/25/16 History Furosemide [Lasix] 20 mg PO DAILY@1600 06/25/16 06/25/16 History [facility] Allergy Medication Otc 1 tab PO QAM 06/25/16 06/25/16 History Lisinopril [Zestril] 2.5 mg PO HS 06/25/16 06/25/16 History Polyethylene Glycol 3350 [Miralax] 17 gm PO BID 06/25/16 06/25/16 History Allergies Allergy/AdvReac Type Severity Reaction Status Date / Time Penicillins Allergy Rash/Hives Verified 06/25/16 22:24 Physical Exam Vitals: Vital Signs Temp Pulse Pulse Resp BP Pulse Ox 06/26/16 09:08 76 06/26/16 08:53 72 91 L 06/26/16 07:41 99.2 F 72 16 114/56 97 06/26/16 02:07 97.0 F L 93 16 130/60 90 L 06/26/16 00:45 24 06/25/16 23:38 24 06/25/16 23:23 88 06/25/16 23:15 88 06/25/16 22:27 97.8 F 108 H 24 160/109 90 L Intake and Output 06/25/16 06/26/16 06/26/16 22:59 06:59 14:59 Other: Voiding Method Bedside Commode # Voids 1 Weight 86.1 kg General appearance: The patient is alert, oriented, in no acute distress. HET: Head is normocephalic and atraumatic. Pupils are equal and reactive. Oropharynx is clear without lesions. Neck: Supple without lymphadenopathy. Trachea midline. Heart: S1 S2. Regular rate and rhythm. Lungs: No crackles or wheezes are heard. Abdomen: Soft, distended nontender with bowel sounds. No peritoneal signs. No palpable organomegaly or masses. Extremities: Normal skin color and turgor. No cyanosis, rash, ulceration, clubbing, or edema. Radial and pedal pulses are 2/4 bilaterally. Neurological: No focal deficits. Strength and sensation are grossly intact. Rectum: External hemorrhoid nonbleeding inflamed. Results CBC & Chem 7: 06/25/16 17:36 06/25/16 17:36 Labs: Abnormal Lab Results - Last 24 Hours (Table) 06/26/16 Range/Units 07:36 POC Glucose (mg/dL) 180 H (75-99) mg/dL Assessment and Plan (1) Constipation Narrative/Plan: acute on chronic Status: Acute (2) Hemorrhoids Status: Chronic (3) COPD exacerbation Status: Acute Plan: 1. Abdominal x-rays reviewed no evidence of obstruction. 2. Discontinue MiraLAX is causing patient more bloatedness and gassiness without good bowel movement response. Family is requesting medication change. 3. FiberCon 1 tablet twice daily. Patient received citrate of magnesia this morning. Will provide one dose of milk of Magnesia. 4. Senokot S 2 tablets twice a day hold for diarrhea. 5. Local hemorrhoidal care Anusol suppository daily/Tucks pads. Will reevaluate. 6. Fiber diet. Thank you for this kind referral and the opportunity to participate in the care of your patient. This consultation was discussed with Dr. Rojas. The impression and plan of care have been directed as dictated.
[2016-06-26] MEDS: METOPROLOL SUCCINATE (ER) 50 MG TAB.ER.24H PO SCH (10:12)
[2016-06-26] MEDS: PANTOPRAZOLE 40 MG TABLET PO SCH (10:12)
[2016-06-26] MEDS: AMIODARONE 200 MG TAB PO SCH (10:12)
[2016-06-26] MEDS: LINAGLIPTIN 5 MG TABLET PO SCH (10:12)
[2016-06-26] MEDS: CALCIUM POLYCARBOPHIL 625 MG TAB PO SCH ×2 (10:25→22:39)
[2016-06-26] MEDS: HYDROCORTISONE SUPPOSITORY 25 MG SUPP RECTAL SCH ×2 (10:25→10:45)
[2016-06-26] MEDS: SENNOSIDES-DOCUSATE SODIUM 1 EACH TAB PO SCH ×2 (10:25→21:59)
[2016-06-26 10:34] LABS: Hemoglobin A1C 6.6 % (4.2-6.1)
[2016-06-26 11:58] LABS: Glucose,Whole Blood 292 mg/dL (75-99)
--- NOTE | 2016-06-26 14:47 | P.CNPUL ---
History of Present Illness Consult date: 06/26/16 Requesting physician: Jocelynn Isabel Reason for consult: dyspnea Chief complaint: Constipation, abdominal discomfort, shortness of breath History of present illness: This is a very pleasant 71-year-old gentleman who follows with Dr. Mccrary as his primary care physician. He has a history of hypertension, coronary artery disease with previous coronary artery bypass grafting, ischemic cardiomyopathy with an ejection fraction less than 20% status post Bi-V AICD placement, carotid stenosis with previous carotid endarterectomy, hypertension, hyperlipidemia, gastroesophageal reflux disease. He also has a history of chronic obstructive pulmonary disease. The patient has been having ongoing issues with constipation and was seen by Dr. Xavier Rojas 3 days ago. He was initiated on MiraLAX. There is no bowel movements still and yesterday the patient was developing significant abdominal distention which was causing him difficulty in breathing. He presented here for the same. An x-ray of the abdomen revealed no evidence of pneumoperitoneum. The bowel gas pattern was unremarkable and no evidence of obstruction. His chest x-ray shows evidence of fluid volume overload/congestive heart failure. He is currently on by mouth Lasix. The patient is seen today in consultation on the regular medical floor. He is awake and alert in no acute distress. His breathing is better today as compared to yesterday. He is able a quite flat in bed. He is maintaining O2 saturations in the 90s on 3 L/m per nasal cannula. He's been hemodynamically stable. Afebrile. No elevated white count. Review of Systems 14 point review of system was conducted. All negative other than as mentioned in HPI. Past Medical History Past Medical History: Atrial Fibrillation, Coronary Artery Disease (CAD), GERD/ Reflux, Hyperlipidemia, Hypertension, Myocardial Infarction ([place]), Prostate Disorder, Respiratory Disorder Additional Past Medical History / Comment(s): EMPHYSEMA, ENLARGED PROSTATE, constipation Last Myocardial Infarction Date:: UNK History of Any Multi-Drug Resistant Organisms: None Reported Past Surgical History: AICD, Cholecystectomy, Coronary Bypass/CABG, Heart Catheterization, Pacemaker, Prostate Surgery Additional Past Surgical History / Comment(s): CABG-3 VESSEL Past Anesthesia/Blood Transfusion Reactions: No Reported Reaction Additional Past Anesthesia/Blood Transfusion Reaction / Comment(s): GETS ANXIOUS WITH ANESTHESIA Type of Cardiac Device: AICD, Unknown Device Placement Date:: UNK initial placement, batteries replaced Oct 2013, LFT CHEST Past Psychological History: No Psychological Hx Reported Additional Psychological History / Comment(s): PT SERVED IN [employer] WHEN HE LIVED IN [facility]. RETIRED FROM WORKING IN [employer]. 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 RECIEVES NO OUTSIDE SERVICES, USES NO CANE OR WALKER AND [place]. Smoking Status: Former smoker Past Alcohol Use History: None Reported Additional Past Alcohol Use History / Comment(s): QUIT SMOKING APPROX 2003, STARTED SMOKING AT APPROX 11 YRS OF AGE Past Drug Use History: None Reported - Past Family History Mother History Unknown: Yes Family Medical History: Diabetes Mellitus, Hypertension Additional Family Medical History / Comment(s): heart issues Father Family Medical History: Cancer Medications and Allergies Home Medications Medication Instructions Recorded Confirmed Type Aspirin 81 mg PO HS 06/27/13 06/25/16 History Lansoprazole 30 mg PO QA 06/27/13 06/25/16 History Metoprolol Succinate [Toprol XL] 50 mg PO [facility] 06/27/13 06/25/16 History Pravastatin Sodium [Pravachol] 80 mg PO 06/27/13 06/25/16 History Amiodarone HCl 200 mg PO QAM 06/28/13 06/25/16 History Furosemide [Lasix] 40 mg PO QAM 11/23/15 06/25/16 History Montelukast [Singulair] 10 mg PO HS 11/23/15 06/25/16 History sitaGLIPtin [Januvia] 100 mg PO DAILY 03/27/16 06/25/16 History Furosemide [Lasix] 20 mg PO DAILY@1600 06/25/16 06/25/16 History [employer] Allergy Medication Otc 1 tab PO QAM 06/25/16 06/25/16 History Lisinopril [Zestril] 2.5 mg PO HS 06/25/16 06/25/16 History Polyethylene Glycol 3350 [Miralax] 17 gm PO BID 06/25/16 06/25/16 History Allergies Allergy/AdvReac Type Severity Reaction Status Date / Time Penicillins Allergy Rash/Hives Verified 06/25/16 22:24 Physical Exam Vitals: Vital Signs Temp Pulse Pulse Resp BP Pulse Ox 06/26/16 12:01 80 06/26/16 12:00 72 16 06/26/16 11:52 80 06/26/16 10:04 126/83 06/26/16 09:08 76 06/26/16 08:53 72 91 L 06/26/16 08:00 72 16 06/26/16 07:41 99.2 F 72 16 114/56 97 06/26/16 02:07 97.0 F L 93 16 130/60 90 L 06/26/16 00:45 24 06/25/16 23:38 24 06/25/16 23:23 88 06/25/16 23:15 88 06/25/16 22:27 97.8 F 108 H 24 160/109 90 L Intake and Output 06/25/16 06/26/16 06/26/16 22:59 06:59 14:59 Other: Voiding Method Bedside Commode Bedside Commode # Voids 1 2 Weight 86.1 kg 86.1 kg Patient Weight 06/27/16 06:59 Weight 86.1 kg GENERAL EXAM: Alert, fairly comfortable in no apparent distress. HEAD: Normocephalic. EYES: Normal reaction of pupils, equal size. NOSE: Clear with pink turbinates. THROAT: No erythema or exudates. NECK: No masses, no JVD. CHEST: No chest wall deformity. LUNGS: Equal air entry with crackles in the posterior bases. Diminished.. CVS: S1 and S2 normal with an audible systolic murmur, regular rhythm. ABDOMEN: Distended, soft, normal bowel sounds, no guarding or rigidity. SPINE: No scoliosis or deformity SKIN: No rashes CENTRAL NERVOUS SYSTEM: No focal deficits, tone is normal in all 4 extremities. Extremities: There is trace peripheral edema. No clubbing, no cyanosis. Peripheral pulses are intact. Results - Laboratory Findings CBC and BMP: 06/25/16 17:36 06/25/16 17:36 PT/INR, D-dimer PT 10.9 sec (9.0-12.0) 06/25/16 17:36 INR 1.1 (<1.1) 06/25/16 17:36 Abnormal lab findings: Abnormal Labs 06/26/16 06/26/16 07:36 11:42 POC Glucose (mg/dL) 180 H 292 H - Diagnostic Findings Chest x-ray: image reviewed Assessment and Plan Plan: Impression: #1 Abdominal distention secondary to constipation. #2 Dyspnea secondary to abdominal distention, suspect acute exacerbation of systolic congestive heart failure, suspect acute exacerbation of chronic obstructive pulmonary disease.. #3 Severe ischemic cardiomyopathy with estimated ejection fraction less than 20% . Status post Bi-V AICD. #4 Coronary artery disease with previous coronary artery bypass grafting. #5 Hyperlipidemia. #6 Hypertension. #7 Gastroesophageal reflux disease. #8 History of smoking for greater than 30 years however quit in 2003. Plan: The patient was seen and evaluated by Dr. Esquivel. His chest x-ray and labs were reviewed. We'll get a proBNP level. We'll change his oral Lasix to IV at 40 mg every 8 hours. We'll repeat his chest x-ray in the a.m. We'll continue with bronchodilators, Symbicort and IV Solu-Medrol. GI services are on the case regarding the abdominal distention. No plans for intervention at this time. Medications are being adjusted. We will continue to follow and make further recommendations based on his clinical status. Time with Patient: Greater than 30
[2016-06-26] MEDS ORDERED: FUROSEMIDE 20 MG TAB PO SCH (16:00)
[2016-06-26] MEDS: FUROSEMIDE 10 MG/ML 4 ML VIAL IV SCH ×2 (16:12→23:32)
[2016-06-26 16:55] LABS: Glucose,Whole Blood 150 mg/dL (75-99)
--- NOTE | 2016-06-26 19:25 | HP ---
DATE OF ADMISSION: Patient is a 71-year-old who is admitted because patient was unable to move his bowels for 7 days, because of which patient was getting short of breath. Patient also has COPD with minimal wheeze, so has inhalational treatments. Patient was having bloatedness and crampy abdominal pain because of that. Patient was started on bowel regimen. Patient follows with Dr. Rojas as an outpatient, because of which I believe ER consulted Gastroenterology and also consulted Pulmonology. Patient had a recent EGD and colonoscopy. Patient received suppository and a molasses enema without any bowel movement except for some small brown liquidy stool. Patient had an abdominal x-ray which did not show any ileus. REVIEW OF SYSTEMS: CONSTITUTIONAL: No fever, no malaise, no fatigue. HEENT: No recent visual problems or hearing problems. Denied any sore throat. CARDIOVASCULAR: No chest pain, orthopnea, PND, no palpitations, no syncope. PULMONARY: As described in HPI. GASTROINTESTINAL: As described in HPI. NEUROLOGICAL: No headaches, no weakness, no numbness. HEMATOLOGICAL: Denies any bleeding or petechiae. GENITOURINARY: Denies any burning micturition, frequency, or urgency. MUSCULOSKELETAL/RHEUMATOLOGICAL: Denies any joint pain, swelling, or any muscle pain. ENDOCRINE: Denies any polyuria or polydipsia. The rest of the 14 point review of systems is negative. PAST MEDICAL HISTORY: 1. Atrial fibrillation. 2. Gastroesophageal reflux disease. 3. COPD. 4. Hyperlipidemia. 5. Hypertension. 6. Chronic diastolic dysfunction. Patient is on Lasix at this time for that. 7. Benign prostatic hypertrophy. 8. Patient has an AICD in place. SOCIAL HISTORY: Former smoker. Quit smoking in 2003. Denied any alcohol abuse or drug abuse. FAMILY HISTORY: Mother had diabetes mellitus and hypertension. Father had cancer. PHYSICAL EXAMINATION: Temperature 98.4, pulse of 80, respiratory rate of 16. Blood pressure is 116/66. Saturating at 94% on 2 L of oxygen by nasal cannula. GENERAL: The patient is alert and oriented x3, not in any acute distress. Well developed, well nourished. HEENT: Pupils are round and equally reacting to light. EOMI. No scleral icterus. No conjunctival pallor. Normocephalic, atraumatic. No pharyngeal erythema. No thyromegaly. CARDIOVASCULAR: S1 and S2 present. No murmurs, rubs, or gallops. PULMONARY: Patient has expiratory wheezing bilaterally. No crackles were appreciated. Decreased air entry into bilateral lung bernstein. ABDOMEN: Patient's abdomen is distended and tympanitic. No tenderness was appreciated. No rebound or rigidity. MUSCULOSKELETAL: No joint swelling or deformity. EXTREMITIES: No cyanosis, clubbing, or pedal edema. NEUROLOGICAL: Gross neurological examination did not reveal any focal deficits. SKIN: No rashes. Home medications include: 1. Aspirin. 2. Lansoprazole. 3. Metoprolol. 4. Pravastatin. 5. Amiodarone. 6. Lasix. 7. Singulair. 8. Sitagliptin. 9. Lisinopril. 10. Polyethylene glycol (Miralax). LABORATORY DATA: CBC, CMP have no significant abnormality appreciated except for minimally elevated blood sugars. ASSESSMENT AND PLAN: 1. Abdominal distention and abdominal pain and shortness of breath, all of which are probably related to constipation mostly. Patient was started on bowel regimen by Gastroenterology already. 2. Chronic obstructive pulmonary disease with minimal exacerbation. Patient's systemic steroids will be changed to oral steroids and will continue with inhalational treatments. 3. Hyperlipidemia. 4. Hypertension. 5. Gastroesophageal reflux disease. 6. Chronic systolic dysfunction with ejection fraction of 20% with biventricular AICD, without any acute exacerbation. IV fluids will be discontinued. Patient will be continued on oral Lasix. 7. Diabetes mellitus. Continue with present regimen, with which patient's blood sugars are fairly controlled.
[2016-06-26] MEDS ORDERED: PRAVASTATIN SODIUM 80 MG TAB PO SCH (21:00)
[2016-06-26] MEDS ORDERED: LISINOPRIL 2.5 MG TAB PO SCH (21:00)
[2016-06-26] MEDS ORDERED: ASPIRIN 81 MG CHEW PO SCH (21:00)
[2016-06-26 22:06] LABS: Glucose,Whole Blood 193 mg/dL (75-99)
[2016-06-27 03:27] VITALS: RESP 16
[2016-06-27] MEDS: SYMBICORT 160-4.5 MCG INHALER INHALATION SCH (07:19)
[2016-06-27 07:28] LABS: Glucose,Whole Blood 143 mg/dL (75-99)
[2016-06-27 07:48] VITALS: BP 123/56; PULSE 78; TEMP 97.1
[2016-06-27] MEDS: INSULIN LISPRO (humaLOG) 300 UNIT/3 ML VIAL SQ SCH (08:06)
[2016-06-27] MEDS: FUROSEMIDE 10 MG/ML 4 ML VIAL IV SCH (08:06)
[2016-06-27] MEDS: CALCIUM POLYCARBOPHIL 625 MG TAB PO SCH (08:06)
[2016-06-27] MEDS: METOPROLOL SUCCINATE (ER) 50 MG TAB.ER.24H PO SCH (08:07)
[2016-06-27] MEDS: AMIODARONE 200 MG TAB PO SCH (08:07)
[2016-06-27] MEDS: LINAGLIPTIN 5 MG TABLET PO SCH (08:07)
[2016-06-27] MEDS: PANTOPRAZOLE 40 MG TABLET PO SCH (08:08)
[2016-06-27] MEDS: SENNOSIDES-DOCUSATE SODIUM 1 EACH TAB PO SCH (08:10)
[2016-06-27] MEDS ORDERED: predniSONE 20 MG TAB PO SCH (09:00)
--- NOTE | 2016-06-27 09:09 | P.PN ---
Subjective Principal diagnosis: constipation 71 year old reevaluated today in regards to constipation. Patient received multiple laxatives yesterday with loose watery return. Feels better today. Denies abdominal pain. Objective - Vital Signs Vital signs: Vital Signs Temp 97.1 F L 06/27/16 07:47 Pulse 78 06/27/16 07:47 Resp 16 06/27/16 07:47 BP 123/56 06/27/16 07:47 Pulse Ox 94 L 06/27/16 07:47 Intake & Output 06/26/16 06/27/16 06/27/16 18:59 06:59 18:59 Weight 86.1 kg Other: Voiding Method Bedside Commode Bedside Commode # Voids 2 1 - Constitutional General appearance: Present: obese - EENT Eyes: Present: normal appearance - Neck Neck: Present: normal ROM - Respiratory Respiratory: bilateral: CTA (diminished in bases) - Cardiovascular Heart sounds: normal: S1, S2 - Gastrointestinal General gastrointestinal: Present: normal bowel sounds, soft - Neurologic Neurologic: Present: CNII-XII intact - Psychiatric Psychiatric: Present: appropriate affect - Labs CBC & Chem 7: 06/25/16 17:36 06/25/16 17:36 Labs: Abnormal Lab Results - Last 24 Hours (Table) 06/26/16 06/26/16 06/26/16 Range/Units 11:42 16:52 22:04 POC Glucose (mg/dL) 292 H 150 H 193 H (75-99) mg/dL 06/27/16 Range/Units 07:24 POC Glucose (mg/dL) 143 H (75-99) mg/dL Assessment and Plan (1) Constipation Narrative/Plan: acute on chronic Status: Acute (2) Hemorrhoids Status: Chronic (3) COPD exacerbation Status: Acute Plan: 1. Will sign off and follow as needed. 2. Prescriptions for Senokot-S provided. Advised twice daily fiber supplement for bowel movement regularity. Assessment and plan of care discussed with Dr. Rojas.
[2016-06-27 11:52] LABS: Glucose,Whole Blood 138 mg/dL (75-99)
--- NOTE | 2016-06-27 14:06 | P.PN ---
Subjective This is a very pleasant 71-year-old gentleman who follows with Dr. Mccrary as his primary care physician. He has a history of hypertension, coronary artery disease with previous coronary artery bypass grafting, ischemic cardiomyopathy with an ejection fraction less than 20% status post Bi-V AICD placement, carotid stenosis with previous carotid endarterectomy, hypertension, hyperlipidemia, gastroesophageal reflux disease. He also has a history of chronic obstructive pulmonary disease. The patient has been having ongoing issues with constipation and was seen by Dr. Xavier Rojas 3 days ago. He was initiated on MiraLAX. There is no bowel movements still and yesterday the patient was developing significant abdominal distention which was causing him difficulty in breathing. He presented here for the same. An x-ray of the abdomen revealed no evidence of pneumoperitoneum. The bowel gas pattern was unremarkable and no evidence of obstruction. His chest x-ray shows evidence of fluid volume overload/congestive heart failure. He is currently on by mouth Lasix. The patient is seen today in consultation on the regular medical floor. He is awake and alert in no acute distress. His breathing is better today as compared to yesterday. He is able a quite flat in bed. He is maintaining O2 saturations in the 90s on 3 L/m per nasal cannula. He's been hemodynamically stable. Afebrile. No elevated white count. The patient is seen again today 06/27/2016 on the surgical floor. He is awake and alert in no acute distress. He is doing much better today as compared to yesterday. He denies any shortness of breath at all. No cough or congestion. He diuresed well. His abdominal discomfort has subsided. He has been having bowel movements now. GI services is working with his laxative adjustments. No plans for intervention at this time. Objective - Vital Signs Vital signs: Vital Signs Temp 97.1 F L 06/27/16 07:47 Pulse 78 06/27/16 07:47 Resp 16 06/27/16 07:47 BP 123/56 06/27/16 07:47 Pulse Ox 94 L 06/27/16 07:47 Intake & Output 06/26/16 06/27/16 06/27/16 18:59 06:59 18:59 Weight 86.1 kg Other: Voiding Method Bedside Commode Bedside Commode # Voids 2 1 - Exam GENERAL EXAM: Alert, fairly comfortable in no apparent distress. HEAD: Normocephalic. EYES: Normal reaction of pupils, equal size. NOSE: Clear with pink turbinates. THROAT: No erythema or exudates. NECK: No masses, no JVD. CHEST: No chest wall deformity. LUNGS: Equal air entry with no wheeze, crackles or rhonchi. Diminished. CVS: S1 and S2 normal with an audible systolic murmur, regular rhythm. ABDOMEN: Distended, soft, normal bowel sounds, no guarding or rigidity. SPINE: No scoliosis or deformity SKIN: No rashes CENTRAL NERVOUS SYSTEM: No focal deficits, tone is normal in all 4 extremities. Extremities: There is trace peripheral edema. No clubbing, no cyanosis. Peripheral pulses are intact. - Labs CBC & Chem 7: 06/25/16 17:36 06/25/16 17:36 Labs: Abnormal Lab Results - Last 24 Hours (Table) 06/26/16 06/26/16 06/27/16 Range/Units 16:52 22:04 07:24 POC Glucose (mg/dL) 150 H 193 H 143 H (75-99) mg/dL 06/27/16 Range/Units 11:50 POC Glucose (mg/dL) 138 H (75-99) mg/dL Assessment and Plan Plan: Impression: #1 Abdominal distention secondary to constipation. Improved. #2 Dyspnea secondary to abdominal distention, acute exacerbation of systolic congestive heart failure, acute exacerbation of chronic obstructive pulmonary disease. Improved. #3 Severe ischemic cardiomyopathy with estimated ejection fraction less than 20% . Status post Bi-V AICD. #4 Coronary artery disease with previous coronary artery bypass grafting. #5 Hyperlipidemia. #6 Hypertension. #7 Gastroesophageal reflux disease. #8 History of smoking for greater than 30 years however quit in 2003. Plan: The patient was seen and evaluated by Dr. Esquivel. The patient is currently stable from the pulmonary standpoint he could be discharged home once cleared by GI services and medicine. He will continue his home pulmonary medications. He'll keep his scheduled office visit in our office. He and his daughter-in- law are both in agreement and will call sooner with any recurrence of symptoms or any other questions or concerns.
--- NOTE | 2016-07-15 10:42 | DS ---
DATE OF ADMISSION: 06/25/2016 DATE OF DISCHARGE: 06/27/2016 DATE OF SERVICE: 06/27/2016 A 71-year-old admitted for severe constipation, which resolved and patient was also treated for COPD exacerbation. The patient was seen and examined on the day of discharge. Vitals are stable. PHYSICAL EXAMINATION: GENERAL: The patient is alert and oriented x3, not in any acute distress. Well developed, well nourished. HEENT: Pupils are round and equally reacting to light. EOMI. No scleral icterus. No conjunctival pallor. Normocephalic, atraumatic. No pharyngeal erythema. No thyromegaly. CARDIOVASCULAR: S1 and S2 present. No murmurs, rubs, or gallops. PULMONARY: Chest is clear to auscultation, no wheezing or crackles. ABDOMEN: Soft, nontender, nondistended, normoactive bowel sounds. No palpable organomegaly. MUSCULOSKELETAL: No joint swelling or deformity. EXTREMITIES: No cyanosis, clubbing, or pedal edema. NEUROLOGICAL: Gross neurological examination did not reveal any focal deficits. SKIN: No rashes. FINAL DIAGNOSES: 1. Abdominal pain secondary to constipation, which resolved. Patient did move his bowels with a bowel regimen. 2. Chronic obstructive pulmonary disease with minimal exacerbation . 3. Hyperlipidemia. 4. Hypertension. 5. Gastroesophageal reflux disease. 6. Chronic systolic dysfunction with an ejection fraction of 20%. The patient is euvolemic. 7. Type 2 diabetes mellitus. Please refer to my depart summary for details of discharge medications. DISCHARGE DIET: Cardiac and ADA 1800 calorie diet. CHF discharge instructions will be provided. Spent greater than 35 minutes in total discharge process. Patient followups: Please refer to the depart summary for further details of his followups.
== END 2016-06-27 15:15 | disposition home or self-care (01) ==
LOC: EC 16:44 → 3OBS 21:11 → 3SUR 06-26 00:21
PROVIDERS: ADMIT Hospitalist; ATTEND Hospitalist
DX: K59.09 Other constipation (principal); I11.0 Hypertensive heart disease with heart failure; I50.21 Acute systolic (congestive) heart failure; I50.32 Chronic diastolic (congestive) heart failure; J44.1 Chronic obstructive pulmonary disease with (acute) exacerbation; I25.5 Ischemic cardiomyopathy; I25.10 Atherosclerotic heart disease of native coronary artery without angina pectoris; Z95.1 Presence of aortocoronary bypass graft; E78.5 Hyperlipidemia, unspecified; K21.9 Gastro-esophageal reflux disease without esophagitis; I25.2 Old myocardial infarction; I48.91 Unspecified atrial fibrillation; Z87.891 Personal history of nicotine dependence; K64.4 Residual hemorrhoidal skin tags; E11.9 Type 2 diabetes mellitus without complications; Z99.81 Dependence on supplemental oxygen; Z79.82 Long term (current) use of aspirin; Z79.899 Other long term (current) drug therapy; Z79.84 Long term (current) use of oral hypoglycemic drugs; Z88.0 Allergy status to penicillin; Z95.810 Presence of automatic (implantable) cardiac defibrillator
CPT/HCPCS: 96374; 96361 ×4; 99285; 36415; 94640 ×5; 94760 ×2; 93005; 83880; 80053; 83036; 82550; 82553; 83690; 84484; 85025; 85610; 85730; 71020; 74020; G0378 ×3; J1940 ×2; J2930 ×2; J7512

== ENCOUNTER → 2016-12-03 | Outpatient (CLI) | payer MEDICARE ==
--- NOTE | 2016-12-04 08:12 | XR ---
EXAMINATION TYPE: XR chest 2V DATE OF EXAM: 12/03/2016 COMPARISON: 06/25/2016 HISTORY: Increasing shortness of breath TECHNIQUE: Frontal and lateral views of the chest are obtained. FINDINGS: Lungs are hyperinflated with flattening of the diaphragms on the lateral image. Multilead left-sided cardiac device is again demonstrated as well as cardiomegaly, mediastinal clips and median sternotomy wires. Minimal right basilar subsegmental linear atelectasis is seen. No focal consolidat ion, pleural effusion or pneumothorax. Mild degenerative changes of the thoracic spine and glenohumer al joints are noted. IMPRESSION: 1. Right basilar subsegmental atelectasis. 2. Radiographic sequela of COPD. 3. Unchanged cardiomegaly.
== END | disposition home or self-care (01) ==
LOC: RADXRYALE 13:49
PROVIDERS: ATTEND Internal Medicine Cardiovascular Disease
DX: I51.7 Cardiomegaly (principal); I50.9 Heart failure, unspecified; J98.11 Atelectasis; J44.9 Chronic obstructive pulmonary disease, unspecified
CPT/HCPCS: 71020

== ENCOUNTER 2017-05-17 08:38 | Inpatient (IN) | payer MEDICARE ==
[2017-05-17] MEDS ORDERED: TERBUTALINE 1 MG/ML VIAL SQ STA (08:40)
[2017-05-17] MEDS ORDERED: ALBUTEROL NEBULIZED 15 MG, IPRATROPIUM NEBULIZED 0.5 MG INHALATION ONE ×2 (08:40)
--- NOTE | 2017-05-17 08:44 | ED ---
General Adult HPI - General Stated complaint: Sob Time Seen by Provider: 05/17/17 08:38 Source: RN notes reviewed - History of Present Illness Initial comments: This is a 71-year-old male with past medical history significant for cardiac disease as well as COPD and congestive heart failure. Patient states that about 3:00 morning started having difficulty breathing he eventually called EMS when EMS arrived he was oxygenating in the low 70s they put him on BiPAP he got him up to 88. Patient states he doesn't want to be intubated quite yet but he will be if necessary. Patient denies any chest pain or palpitations. Patient denies any recent fever chills or cough per patient denies abdominal pain patient denies nausea vomiting or diarrhea. Patient denies any recent injury or fall. Patient denies any headache patient denies any syncopal or near syncopal episodes. - Related Data Home Medications Medication Instructions Recorded Confirmed Aspirin 81 mg PO HS 06/27/13 05/17/17 Lansoprazole 30 mg PO BID 06/27/13 05/17/17 Metoprolol Succinate [Toprol XL] 50 mg PO DAILY 06/27/13 05/17/17 Pravastatin Sodium [Pravachol] 80 mg PO HS 06/27/13 05/17/17 Amiodarone HCl 200 mg PO DAILY 06/28/13 05/17/17 Montelukast [Singulair] 10 mg PO HS 11/23/15 05/17/17 sitaGLIPtin [Januvia] 100 mg PO DAILY 03/27/16 05/17/17 Lisinopril [Zestril] 2.5 mg PO HS 06/25/16 05/17/17 Polyethylene Glycol 3350 [Miralax] 17 gm PO DAILY 06/25/16 05/17/17 Albuterol Nebulized [Ventolin 2.5 mg INHALATION RT-Q6H PRN 02/11/17 05/17/17 Nebulized] Cetirizine HCl 10 mg PO DAILY 02/11/17 05/17/17 FLUoxetine HCL [PROzac] 20 mg PO DAILY 02/11/17 05/17/17 Furosemide [Lasix] 40 mg PO BID 02/11/17 05/17/17 Lubiprostone [Amitiza] 24 mcg PO DAILY PRN 12/20/17 03/25/18 ALPRAZolam [Xanax] 0.25 mg PO HS PRN 05/17/17 05/17/17 Allergies Allergy/AdvReac Type Severity Reaction Status Date / Time Penicillins Allergy Rash/Hives Verified 05/17/17 09:24 Review of Systems ROS Statement: Those systems with pertinent positive or pertinent negative responses have been documented in the HPI. ROS Other: All systems not noted in ROS Statement are negative. Past Medical History Past Medical History: Atrial Fibrillation, Coronary Artery Disease (CAD), GERD/ Reflux, Hyperlipidemia, Hypertension, Myocardial Infarction ([place]), Prostate Disorder, Respiratory Disorder Additional Past Medical History / Comment(s): EMPHYSEMA, ENLARGED PROSTATE, constipation Last Myocardial Infarction Date:: UNK History of Any Multi-Drug Resistant Organisms: None Reported Past Surgical History: AICD, Cholecystectomy, Coronary Bypass/CABG, Heart Catheterization, Pacemaker, Prostate Surgery Additional Past Surgical History / Comment(s): CABG-3 VESSEL Past Anesthesia/Blood Transfusion Reactions: No Reported Reaction Additional Past Anesthesia/Blood Transfusion Reaction / Comment(s): GETS ANXIOUS WITH ANESTHESIA Type of Cardiac Device: AICD, Unknown Device Placement Date:: UNK initial placement, batteries replaced Oct 2013, LFT CHEST Past Psychological History: No Psychological Hx Reported Additional Psychological History / Comment(s): PT SERVED IN [employer] WHEN HE LIVED IN [facility]. RETIRED FROM WORKING IN [employer]. 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 RECIEVES NO OUTSIDE SERVICES, USES NO CANE OR [place] AND [place]. Smoking Status: Former smoker Past Alcohol Use History: None Reported Additional Past Alcohol Use History / Comment(s): QUIT SMOKING APPROX 2003, STARTED SMOKING AT APPROX 11 YRS OF AGE Past Drug Use History: None Reported - Past Family History Mother History Unknown: Yes Family Medical History: Diabetes Mellitus, Hypertension Additional Family Medical History / Comment(s): heart issues Father Family Medical History: Cancer General Exam - General Exam Comments Initial Comments: GENERAL: Patient is well-developed and well-nourished. Patient is nontoxic and well- hydrated and is in moderate respiratory distress. ENT: Neck is soft and supple. No significant lymphadenopathy is noted. Oropharynx is clear. Moist mucous membranes. Neck has full range of motion without eliciting any pain. EYES: The sclera were anicteric and conjunctiva were pink and moist. Extraocular movements were intact and pupils were equal round and reactive to light. Eyelids were unremarkable. PULMONARY: Unlabored respirations. Good breath sounds bilaterally. No audible rales rhonchi or wheezing was noted. CARDIOVASCULAR: There is a regular rate and rhythm without any murmurs gallops or rubs. ABDOMEN: Soft and nontender with normal bowel sounds. SKIN: Skin is clear with no lesions or rashes and otherwise unremarkable. NEUROLOGIC: Patient is alert and oriented x3. Cranial nerves II through XII are grossly intact. Motor and sensory are also intact. Normal speech, volume and content. Symmetrical smile. MUSCULOSKELETAL: Normal extremities with adequate strength and full range of motion. No lower extremity swelling or edema. No calf tenderness. LYMPHATICS: No significant lymphadenopathy is noted PSYCHIATRIC: Normal psychiatric evaluation. Course Vital Signs 05/17/17 05/17/17 05/17/17 08:42 08:49 08:50 Temperature 97.0 F L Pulse Rate 71 96 Respiratory 32 H 32 H Rate Blood Pressure 197/94 O2 Sat by Pulse 56 L Oximetry 05/17/17 05/17/17 05/17/17 08:58 09:07 09:37 Temperature Pulse Rate 71 82 90 Respiratory 28 H Rate Blood Pressure 141/80 O2 Sat by Pulse 98 Oximetry 05/17/17 05/17/17 05/17/17 09:48 10:04 10:28 Temperature Pulse Rate 100 88 96 Respiratory 28 H 26 H Rate Blood Pressure 187/82 O2 Sat by Pulse 98 95 Oximetry Medical Decision Making - Medical Decision Making EKG shows a paced rhythm at 94 bpm MN interval is 132 QRS is 170 QT interval is 458 QTC is 572 Chest x-ray shows pulmonary edema acute CAT scan showed a possible PE so started the patient heparin. Patient received Lasix and Nitropaste. Patient's lactic acid was elevated but I believe was secondary due to hypoxia prior to arrival. We will repeat the lactic acid I spoke with because he is aware of this. I also told doctor because about the high white count and sensory normal source for infection at this time her mental hold antibiotics. Abdomen the patient I wrote admitting orders I consult to Dr. Armstrong and cardiology. I continue the Lasix Nitropaste and aspirin on the floor - Lab Data Result diagrams: 05/17/17 08:43 03/25/18 08:43 Lab Results 05/17/17 05/17/17 05/17/17 Range/Units 08:43 08:43 08:43 WBC 25.0 H* (3.8-10.6) k/uL RBC 4.56 (4.30-5.90) m/uL Hgb 13.7 (13.0-17.5) gm/dL Hct 44.4 (39.0-53.0) % MCV 97.4 (80.0-100.0) fL MCH 29.9 (25.0-35.0) pg MCHC 30.7 L (31.0-37.0) g/dL RDW 14.8 (11.5-15.5) % Plt Count 267 (150-450) k/uL Neutrophils % 71 % Lymphocytes % 21 % Monocytes % 6 % Eosinophils % 0 % Basophils % 0 % Neutrophils # 17.8 H (1.3-7.7) k/uL Lymphocytes # 5.1 H (1.0-4.8) k/uL Monocytes # 1.4 H (0-1.0) k/uL Eosinophils # 0.0 (0-0.7) k/uL Basophils # 0.1 (0-0.2) k/uL Manual Slide Review Performed Hypochromasia Moderate PT (9.0-12.0) sec INR (<1.2) APTT (22.0-30.0) sec Sodium 145 (137-145) mmol/L Potassium 5.1 (3.5-5.1) mmol/L Chloride 104 (98-107) mmol/L Carbon Dioxide 23 (22-30) mmol/L Anion Gap 18 mmol/L BUN 19 (9-20) mg/dL Creatinine 1.18 (0.66-1.25) mg/dL Est GFR (CKD-EPI)AfAm 71 (>60 ml/min/1.73 sqM) Est GFR (CKD-EPI)NonAf 61 (>60 ml/min/1.73 sqM) Glucose 292 H (74-99) mg/dL Plasma Lactic Acid Sixto (0.7-2.0) mmol/L Calcium 9.4 (8.4-10.2) mg/dL Magnesium 2.1 (1.6-2.3) mg/dL Total Bilirubin 0.7 (0.2-1.3) mg/dL AST 51 (17-59) U/L ALT 41 (21-72) U/L Alkaline Phosphatase 101 (38-126) U/L Total Creatine Kinase 53 L (55-170) U/L CK-MB (CK-2) 2.2 (0.0-2.4) ng/mL CK-MB (CK-2) Rel Index 4.2 Troponin I 0.038 H* (0.000-0.034) ng/mL NT-Pro-B Natriuret Pep pg/mL Total Protein 7.3 (6.3-8.2) g/dL Albumin 4.0 (3.5-5.0) g/dL 05/17/17 05/17/17 05/17/17 Range/Units 08:43 08:43 08:43 WBC (3.8-10.6) k/uL RBC (4.30-5.90) m/uL Hgb (13.0-17.5) gm/dL Hct (39.0-53.0) % MCV (80.0-100.0) fL MCH (25.0-35.0) pg MCHC (31.0-37.0) g/dL RDW (11.5-15.5) % Plt Count (150-450) k/uL Neutrophils % % Lymphocytes % % Monocytes % % Eosinophils % % Basophils % % Neutrophils # (1.3-7.7) k/uL Lymphocytes # (1.0-4.8) k/uL Monocytes # (0-1.0) k/uL Eosinophils # (0-0.7) k/uL Basophils # (0-0.2) k/uL Manual Slide Review Hypochromasia PT 10.6 (9.0-12.0) sec INR 1.1 (<1.2) APTT 20.8 L (22.0-30.0) sec Sodium (137-145) mmol/L Potassium (3.5-5.1) mmol/L Chloride (98-107) mmol/L Carbon Dioxide (22-30) mmol/L Anion Gap mmol/L BUN (9-20) mg/dL Creatinine (0.66-1.25) mg/dL Est GFR (CKD-EPI)AfAm (>60 ml/min/1.73 sqM) Est GFR (CKD-EPI)NonAf (>60 ml/min/1.73 sqM) Glucose (74-99) mg/dL Plasma Lactic Acid Sixto 5.3 H* (0.7-2.0) mmol/L Calcium (8.4-10.2) mg/dL Magnesium (1.6-2.3) mg/dL Total Bilirubin (0.2-1.3) mg/dL AST (17-59) U/L ALT (21-72) U/L Alkaline Phosphatase (38-126) U/L Total Creatine Kinase (55-170) U/L CK-MB (CK-2) (0.0-2.4) ng/mL CK-MB (CK-2) Rel Index Troponin I (0.000-0.034) ng/mL NT-Pro-B Natriuret Pep 4800 pg/mL Total Protein (6.3-8.2) g/dL Albumin (3.5-5.0) g/dL Critical Care Time Critical Care Time: Yes Total Critical Care Time: 35 Disposition Clinical Impression: Pulmonary embolism, Acute pulmonary edema Disposition: ADMITTED IP TO THIS HOSP Referrals: Elissa Mccrary MD [Primary Care Provider] - 1-2 days Time of Disposition: 12:19
[2017-05-17] MEDS ORDERED: ATORVASTATIN 80 MG TAB PO STA (08:56)
[2017-05-17] MEDS ORDERED: LORazepam 2 MG/ML INJ IV STA ×2 (09:02→09:51)
[2017-05-17 09:06] LABS: Calcium 9.4 mg/dL (8.4-10.2); INR 1.1 (<1.2); Magnesium 2.1 mg/dL (1.6-2.3); Potassium 5.1 mmol/L (3.5-5.1); Prothrombin Time 10.6 sec (9.0-12.0); Total Bilirubin 0.7 mg/dL (0.2-1.3); Total Protein 7.3 g/dL (6.3-8.2)
[2017-05-17 09:12] LABS: Basophils # (A) 0.1 k/uL (0-0.2); Basophils % (A) 0 %; Eosinophils % (A) 0 %; HCT 44.4 % (39.0-53.0); HGB 13.7 gm/dL (13.0-17.5); Hypochromasia Moderate; Lymphocytes % (A) 21 %; MCH 29.9 pg (25.0-35.0); MCHC 30.7 g/dL (31.0-37.0); MCV 97.4 fL (80.0-100.0); Mean Platelet Volume 8.3; Monocytes # (A) 1.4 k/uL (0-1.0); Monocytes % (A) 6 %; Neutrophils # (A) 17.8 k/uL (1.3-7.7); Neutrophils % (A) 71 %; Platelet Count 267 k/uL (150-450); RBC 4.56 m/uL (4.30-5.90); RDW 14.8 % (11.5-15.5)
[2017-05-17 09:18] LABS: Lymphocytes # (A) 5.1 k/uL (1.0-4.8)
[2017-05-17 09:22] LABS: Partial Thromboplastin Time 20.8 sec (22.0-30.0)
[2017-05-17 09:28] LABS: Creatine Kinase MB 2.2 ng/mL (0.0-2.4)
[2017-05-17 09:39] LABS: Troponin I 0.038 ng/mL (0.000-0.034)
--- NOTE | 2017-05-17 09:39 | XR ---
EXAMINATION TYPE: XR chest 1V portable DATE OF EXAM: 05/17/2017 HISTORY: difficulty breathing. REFERENCE: Previous study dated 04/03/2017. FINDINGS: There is a multilead pacing device in place on the left. There has been a previous midline sternotomy. The heart is enlarged. There is vascular congestion and pulmonary edema. I suspect small bilateral ef fusions. IMPRESSION: CHANGES CONSISTENT WITH PULMONARY EDEMA.
[2017-05-17] MEDS ORDERED: FUROSEMIDE 10 MG/ML 10 ML VIAL IV STA (09:47)
[2017-05-17] MEDS ORDERED: NITROGLYCERIN OINT 1 INCH/GM PACKET TOPICAL STA (09:47)
[2017-05-17] MEDS ORDERED: FUROSEMIDE 10 MG/ML 4 ML VIAL IV STA (09:57)
[2017-05-17 10:17] LABS: ABG Base Excess -1.3 mmol/L; ABG HCO3 25 mmol/L (21-25); ABG Oxygen Saturation 93.7 % (94-97); ABG PCO2 51 mmHg (35-45); ABG PO2 77 mmHg (83-108); ABG TCO2 27 mmol/L (19-24)
[2017-05-17] MEDS ORDERED: ENALAPRILAT 1.25 MG/ML 1 ML VIAL IVP STA (10:47)
[2017-05-17] MEDS ORDERED: RX INFO: IV CONTRAST WAS GIVEN 1 EACH MISC MISCELLANE PRN (10:54)
[2017-05-17] MEDS ORDERED: HEPARIN SODIUM,PORCINE 10,000 UNIT/ML 1 ML VIAL IV ONE (12:04)
--- NOTE | 2017-05-17 12:07 | CT ---
EXAMINATION TYPE: CT chest angio for PE DATE OF EXAM: 05/17/2017 COMPARISON: NONE HISTORY: Difficulty breathing CT DLP: 546.8 mGycm Automated exposure control for dose reduction was used. CONTRAST: CT Chest for pulmonary embolism performed with with IV Contrast, patient injected with 90 mL of Omnip aque 350. FINDINGS: There is a large right pleural effusion and a smaller left pleural effusion. There is evide nce of relaxation atelectasis present bilaterally. 2 cm low attenuating lesion within the major fissu re likely represents a pseudotumor. There is some nonspecific adenopathy in the aortopulmonary window. The largest measures 11 mm. No def inite hilar adenopathy is seen. There is a questionable embolus in the posterior lower lobe pulmonary artery on the left. No other pulmonary emboli are seen. The aorta is normal in caliber. The heart is enlarged. There is no pericardial fluid. Visualized portions of the upper abdomen are unremarkable. There is hypertrophic spondylosis within the spine. IMPRESSION: 1. THIS EXAMINATION IS POSITIVE FOR A PULMONARY EMBOLUS IN THE POSTERIOR LOWER LOBE PULMONARY ARTERY ON THE LEFT. 2. BILATERAL EFFUSIONS, MUCH LARGER ON THE RIGHT THAN THE LEFT. 3. BIBASILAR ATELECTASIS. GREATER ON THE RIGHT THAN THE LEFT. 4. PROBABLE PSEUDOTUMOR IN THE MAJOR FISSURE ON THE LEFT. 5. CARDIOMEGALY. This report was phoned to Dr. Kaiser in the ER at the time of reporting.
[2017-05-17] MEDS: HEPARIN SOD,PORK IN 0.45% NACL 25,000 UNIT in 0.45% NACL 1 500ML.BAG IV SCH (12:26)
[2017-05-17] MEDS: NITROGLYCERIN OINT 1 INCH/GM PACKET TOPICAL SCH ×3 (14:29→23:27)
[2017-05-17] MEDS ORDERED: NON-FORMULARY DRUG (Lubiprostone [Amitiza] 24 MCG) PO PRN (16:12)
[2017-05-17] MEDS ORDERED: ALBUTEROL NEBULIZED 2.5 MG/3 ML INHALATION PRN (16:12)
--- NOTE | 2017-05-17 17:07 | HP ---
HISTORY AND PHYSICAL DATE OF SERVICE: 05/17/2017. CHIEF COMPLAINT: Shortness of breath. A 71-year-old male with history of coronary artery disease, CHF and COPD, brought to the ED by EMS with a complaint of shortness of breath and hypoxemia. According to patient, he woke up at 3 in the morning and felt difficulty breathing which became worse very rapidly. He eventually called the EMS. EMS found the patient with oxygen saturation in the low 70s. The patient was put on BiPAP, which improved the oxygen saturation to 88%. The patient was then brought to the ED. The patient denies any chest pain or palpitations. There was no history of recent fever, chills or nausea or vomiting. PAST MEDICAL HISTORY: 1. Significant for history of coronary artery disease. 2. Status post MS in the past. 3. Congestive heart failure. 4. Atrial fibrillation. 5. Hypertension. 6. Hyperlipidemia. 7. Advanced chronic obstructive pulmonary disease. 8. Benign prostatic hypertrophy. 9. History of constipation. PAST SURGICAL HISTORY: 1. Significant for coronary artery bypass grafting. 2. Heart catheterization. 3. AICD placement. 4. Cholecystectomy. SOCIAL HISTORY: Patient denies history of smoking, claims he quit smoking long time ago. No history of IV drug abuse or alcohol abuse. FAMILY HISTORY: A family history significant for diabetes and hypertension in mother, and also coronary artery disease in mother, history of cancer and father. MEDICATIONS: Patient is on aspirin 81 mg daily. Prevacid 30 mg b.i.d. Toprol-XL 50 mg daily. Pravachol 80 mg daily. Amiodarone 200 mg daily. Singular 10 mg q.h.s., Januvia 100 mg daily, Zestril 2.5 mg daily. MiraLAX 17 mg daily. Ventolin inhaler 2 puffs q.i.d., cetirizine 10 mg daily, Prozac 20 mg daily, Lasix 40 mg b.i.d., Amitiza 24 mcg daily p.r.n. Xanax 0.25 mg q.h.s. p.r.n. ALLERGIC: TO ASPIRIN. REVIEW OF SYSTEM: Constitutional: Patient denies any fever, chills. No unexplained weight loss or weight gain. HEENT: The patient denies any vision or hearing difficulties. RESPIRATORY SYSTEM: Shortness of breath as per HPI. Cardiovascular: History of coronary artery disease, CHF. Denies any chest pain. GI/ABDOMEN: No nausea, vomiting, diarrhea. Genitourinary: No hematuria or dysuria. Extremities: Denies any joint or muscle deformities. Moves all 4 extremities. Neurological examination: No dizziness, lightheadedness. No weakness. Skin no rashes or pigmentation. Endocrine: No history of diabetes. Rest of 14-point review of systems unremarkable. PHYSICAL EXAMINATION: Patient is well developed and well nourished. He is in moderate respiratory distress. Vital signs: Temperature at the time of presentation to the ED, temperature 97, pulse 81, respiration 32, blood pressure 187/94, O2 saturation 56% which improved to 98% on oxygen. HEENT: Atraumatic, normocephalic. Pupils equal and reactive to light. Extraocular movements intact. Buccal mucosa is moist. NECK: Supple. No goiter, lymphadenopathy. JVD is negative. No carotid bruit heard. Lungs: The patient is in mild respiratory distress. Occasional wheezing and rhonchi. Fair air entry. Heart is tachycardic regular rhythm without any murmurs gallop rhythm. ABDOMEN: Soft, nontender, nondistended. Bowel sounds positive. EXTREMITIES: No edema, clubbing, cyanosis. Neurological examination: Patient is awake, alert, oriented x3. Cranial nerves 2-12 grossly intact. No gross motor or sensory deficit. Skin is warm and intact. No rashes or pigmentation. Musculoskeletal: Patient moves all 4 extremities. No lower extremity swelling or rashes or tenderness. Lymphatic system: No lymphadenopathy is noted. Psychiatric examination: Patient has sound affect and mood and judgment. LAB: CBC, white blood count of 25, hemoglobin 13.7, hematocrit 44.4, and platelet count of 267. Chemical profile sodium 145, potassium 5.1, chloride 104, bicarb 23, BUN 19, creatinine 1.1, glucose 298. The patient's chest x-ray showed pulmonary edema. EKG showed paced rhythm with 94 beats per minute. CTA chest showed PE. No acute pulmonary process. Troponin of 0.038, CK-MB are normal. ASSESSMENT: 1. Acute pulmonary embolism. 2. Acute pulmonary edema. 3. Elevated troponin; rule out non ST-elevation myocardial infarction. 4. Uncontrolled hypertension. 5. Hyperglycemia. No history of diabetes. 6. Leukocytosis with elevated lactic acid level. No source of infection is demonstrated. PLAN: The patient was given IV Lasix and nitro paste in the ED, was started on IV heparin drip. We plan to admit the patient to [facility]. Monitor cardiac enzymes and EKG. I will consult Cardiology and Pulmonary. Continue with heparin per protocol. We will monitor blood pressure closely. Restart on home medications and make adjustments if blood pressure remains elevated. The patient does not have any history of diabetes. Patient's glucose is elevated at 292. We will order Accu-Cheks with insulin sliding scale and make further recommendations depending upon the clinical course. I will mcgee culture the patient. Monitor CBC. The patient does not have any fever at this point. Lactic acid was elevated on admission but did improve with improved respiratory status. We will continue to monitor lactic acid and antibiotic treatment. white blood count remains elevated, of there is any source of infection. MMODL / IJN: [id number] /
[2017-05-17 17:50] LABS: Glucose,Whole Blood 151 mg/dL (75-99)
[2017-05-17 20:57] LABS: Glucose,Whole Blood 234 mg/dL (75-99)
[2017-05-17] MEDS: FUROSEMIDE 40 MG TAB PO SCH ×2 (21:16→21:19)
[2017-05-17] MEDS: ASPIRIN 81 MG PO SCH (21:18)
[2017-05-17] MEDS: PANTOPRAZOLE 40 MG TABLET PO SCH (21:18)
[2017-05-17] MEDS: LISINOPRIL 2.5 MG TAB PO SCH (21:18)
[2017-05-17] MEDS: PRAVASTATIN SODIUM 80 MG TAB PO SCH (21:18)
[2017-05-17] MEDS: MONTELUKAST 10 MG TAB PO SCH (21:18)
[2017-05-17 22:22] LABS: Hemoglobin A1C 5.9 % (4.0-6.0)
[2017-05-18 06:13] LABS: Glucose,Whole Blood 135 mg/dL (75-99)
[2017-05-18 06:45] LABS: Basophils % (A) 0 %; Eosinophils % (A) 0 %; HCT 39.8 % (39.0-53.0); HGB 12.9 gm/dL (13.0-17.5); Lymphocytes # (A) 1.1 k/uL (1.0-4.8); Lymphocytes % (A) 5 %; MCH 30.2 pg (25.0-35.0); MCHC 32.5 g/dL (31.0-37.0); MCV 92.9 fL (80.0-100.0); Mean Platelet Volume 7.9; Monocytes # (A) 0.5 k/uL (0-1.0); Monocytes % (A) 2 %; Neutrophils % (A) 93 %; Platelet Count 213 k/uL (150-450); RBC 4.29 m/uL (4.30-5.90); RDW 14.6 % (11.5-15.5); WBC 23.8 k/uL (3.8-10.6)
[2017-05-18 06:52] LABS: Anion Gap 9 mmol/L; Blood Urea Nitrogen 26 mg/dL (9-20); Calcium 9.1 mg/dL (8.4-10.2); Carbon Dioxide 29 mmol/L (22-30); Chloride 105 mmol/L (98-107); Glucose 136 mg/dL (74-99); Potassium 4.4 mmol/L (3.5-5.1); Sodium 143 mmol/L (137-145)
[2017-05-18] MEDS: AMIODARONE 200 MG TAB PO SCH (09:41)
[2017-05-18] MEDS: FUROSEMIDE 40 MG TAB PO SCH ×3 (09:41→22:48)
[2017-05-18] MEDS: FLUoxetine HCL 20 MG CAP PO SCH (09:42)
[2017-05-18] MEDS: LINAGLIPTIN 5 MG TABLET PO SCH (09:42)
[2017-05-18] MEDS: LORATADINE 10 MG TAB PO SCH (09:42)
[2017-05-18] MEDS: NITROGLYCERIN OINT 1 INCH/GM PACKET TOPICAL SCH ×3 (09:43→17:40)
[2017-05-18] MEDS: METOPROLOL SUCCINATE (ER) 50 MG TAB.ER.24H PO SCH (09:43)
[2017-05-18] MEDS: PANTOPRAZOLE 40 MG TABLET PO SCH ×2 (09:43→20:44)
[2017-05-18] MEDS: POLYETHYLENE GLYCOL 3350 17 GM POWD.PACK PO SCH (09:44)
[2017-05-18 11:15] LABS: Appearance,Urine Clear (Clear); Bilirubin,Urine Negative (Negative); Blood,Urine Moderate (Negative); Color,Urine Yellow; Glucose,Urine (UA) Negative (Negative); Ketones,Urine Negative (Negative); Leukocyte Esterase,Urine Small (Negative); Mucus,Urine Rare /hpf; Nitrite,Urine Negative (Negative); PH, Urine 5.5 (5.0-8.0); Protein,Urine Trace (Negative); RBC,Urine 25 /hpf (0-5); Specific Gravity,Urine 1.022 (1.001-1.035); Urobilinogen,Urine <2.0 mg/dL (<2.0); WBC,Urine 8 /hpf (0-5)
--- NOTE | 2017-05-18 11:29 | CONS ---
CONSULTATION CHIEF COMPLAINT: Shortness of breath. Mr. Hubbard is a 71-year-old gentleman with history of coronary artery disease, status post CABG, hypertension, dyslipidemia, [id number] diabetes who presents to the hospital with progressively worsening shortness of breath. He has suffered from flu earlier in the year. Patient states that he suddenly became short of breath at night, that got progressively worse, moderate to severe, came in and got admitted. Head had a CT scan of the chest that showed bilateral pulmonary embolism and is currently being treated for the same. He denies chest pain, palpitations, dizziness or syncope. The patient has known CAD, ischemic cardiomyopathy, SP AICD, and prior carotid endarterectomy. At the time of my evaluation, patient is on IV heparin. States that his shortness of breath has improved significantly. PAST MEDICAL HISTORY: Significant for coronary artery disease, status goal post CABG, ischemic cardiomyopathy, status post AICD, chronic systolic heart failure, hypertension, diabetes, dyslipidemia. MEDICATIONS: At home included Januvia, Pravachol, MiraLAX, Toprol-XL, Zestril, Lasix, Prozac, amiodarone, Ventolin, and Xanax. ALLERGIES: Allergic to PENICILLIN. FAMILY HISTORY: Negative for premature coronary artery disease. SOCIAL HISTORY: Negative for current smoking, EtOH abuse or drug abuse. REVIEW OF SYSTEMS: HEENT is unremarkable. CARDIAC: as described above. RESPIRATORY: As described above. GI: Negative. GENITOURINARY: Negative. MUSCULOSKELETAL: Significant for arthritis. PSYCHOSOCIAL: Negative. ENDOCRINE: Negative. DERM: Negative. CONSTITUTIONAL: Negative. ONCOLOGICAL: Negative Rest of the system review is not relevant. PHYSICAL EXAM: On exam, patient is comfortable at rest. Vital signs are stable. Chest exam reveals diminished air entry at the bases. Heart exam reveals first and second heart sounds. No gallop. Abdomen is soft. Exam of extremities reveals trace edema. Peripheral pulses are felt. LABS: Show that the white cell count is elevated at 23. Hemoglobin is 12.9, potassium is 4.4, creatinine is 0.8. ASSESSMENT: 1. Shortness of breath, probably related to acute pulmonary embolism. Patient is on IV heparin. Will see if he is covered for any oral anticoagulants. If he is, will switch him to one of the agents. 2. Coronary artery disease, status post coronary artery bypass grafting. 3. Ischemic cardiomyopathy, status post AICD. PLAN: Patient will continue with current medications including IV heparin. I will obtain a 2D echo. Will decide on further course of action based on how he does. ARTEMIO / GARCÍA: [id number] /
[2017-05-18 11:36] LABS: Glucose,Whole Blood 103 mg/dL (75-99)
--- NOTE | 2017-05-18 12:56 | ECHOF ---
Referral Reason:pe MEASUREMENTS -------- HEIGHT: 172.7 cm WEIGHT: 79.4 kg BP: 137/71 RVIDd: 3.3 cm (< 3.3) IVSd: 1.3 cm (0.6 - 1.1) LVIDd: 6.0 cm (3.9 - 5.3) LVPWd: 1.3 cm (0.6 - 1.1) IVSs: 1.9 cm LVIDs: 4.6 cm LVPWs: 1.8 cm LA Diam: 3.9 cm (2.7 - 3.8) LAESV Index (A-L): 45.52 ml/m Ao Diam: 3.5 cm (2.0 - 3.7) AV Cusp: 1.5 cm (1.5 - 2.6) MV EXCURSION: 13.189 mm (> 18.000) MV EF SLOPE: 55 mm/s (70 - 150) EPSS: 1.5 cm MV E Kamron: 0.95 m/s MV DecT: 199 ms MV A Kamron: 0.66 m/s MV E/A Ratio: 1.44 RAP: 5.00 mmHg RVSP: 48.59 mmHg FINDINGS -------- AICD This was a technically adequate study. The left ventricle is mildly dilated. There is borderline concentric left ventricular hypertrophy. Overall left ventricular systolic function is severely impaired with, an EF between 20 - 25 %. Mi d posterior LV wall motion is akinetic. Mid inferior LV wall motion is akinetic. The right ventricle is mildly enlarged. LA is severely dilated >40 ml/m2 The right atrium is normal in size. There is mild aortic valve sclerosis. The mitral valve leaflets are mildly thickened. Mild mitral annular calcification present. Mild m itral regurgitation is present. Mild tricuspid regurgitation present. There is moderate pulmonary hypertension. The right ventric ular systolic pressure, as measured by Doppler, is 48.59mmHg. Trace/mild (physiologic) pulmonic regurgitation. The aortic root size is normal. Normal inferior vena cava with normal inspiratory collapse consistent with estimated right atrial pre ssure of 5 mmHg. There is no pericardial effusion. CONCLUSIONS -------- 1. AICD 2. This was a technically adequate study. 3. The left ventricle is mildly dilated. 4. There is borderline concentric left ventricular hypertrophy. 5. Overall left ventricular systolic function is severely impaired with, an EF between 20 - 25 %. 6. Mid posterior LV wall motion is akinetic. 7. Mid inferior LV wall motion is akinetic. 8. The right ventricle is mildly enlarged. 9. LA is severely dilated >40 ml/m2 10. The right atrium is normal in size. 11. There is mild aortic valve sclerosis. 12. The mitral valve leaflets are mildly thickened. 13. Mild mitral annular calcification present. 14. Mild mitral regurgitation is present. 15. Mild tricuspid regurgitation present. 16. There is moderate pulmonary hypertension. 17. The right ventricular systolic pressure, as measured by Doppler, is 48.59mmHg. 18. Trace/mild (physiologic) pulmonic regurgitation. 19. The aortic root size is normal. 20. Normal inferior vena cava with normal inspiratory collapse consistent with estimated right atrial pressure of 5 mmHg. 21. There is no pericardial effusion. SPRAY MACHINE LOADER: Josey Pereyra RDCS
[2017-05-18 14:56] VITALS: BMI 26.6
--- NOTE | 2017-05-18 16:05 | P.CNPUL ---
History of Present Illness Consult date: 05/18/17 Reason for consult: dyspnea History of present illness: 71-year-old male patient with previous history of coronary artery disease and previous bypass surgery, cardiomyopathy of an ischemic type with an ejection fraction of around 20% and the patient has an AICD in place in addition history of insulin-dependent diabetes mellitus, hypertension, hyperlipidemia and peripheral vascular disease with carotid artery involvement. The patient presented to the hospital because of worsening shortness of breath. The patient claims that he was having difficulties with sitting up and performing activities of the routine day-to-day life. He denied having any chest pain. No cough or sputum production. No hemoptysis or wheezing. No pleurisy. He had no fever. He felt that he was coming down with an upper respiratory tract infection. Nevertheless, upon arrival, his white cell count was elevated at 25, 000 and he had also some mild lactic acidosis. He did not have any significant changes in his body weight. His chest x-ray showed some increased haziness in lung bases especially on the right along with some cardiomegaly. Based on that a CT angios the chest was done and it showed a questionable subsegmental pulmonary embolism in the left lower lobe. There was a moderate-sized right- sided pleural effusion along with that there is evidence of pulmonary vessel congestion. The patient was started on IV heparin. Note that he has not been on any anticoagulation the past. No previous history of DVT or pulmonary embolism. No previous history of any bleeding complications. The patient is feeling slightly better compared to yesterday. He briefly went on a BiPAP which was subsequently discontinued. He denies having any angina. No palpitation. No significant changes cardiac rhythm which is paced at this point. Review of Systems Constitutional: Reports fatigue, Reports weakness Eyes: denies blurred vision, denies bulging eye, denies decreased vision, denies diplopia, denies discharge, denies dry eye Ears: deny: decreased hearing, ear discharge, earache, tinnitus Ears, nose, mouth and throat: Denies headache, Denies sore throat Cardiovascular: Reports decreased exercise tolerance, Reports dyspnea on exertion, Reports shortness of breath Respiratory: Reports dyspnea, Reports respiratory infections Gastrointestinal: Denies abdominal pain, Denies diarrhea, Denies nausea, Denies vomiting Genitourinary: Reports as per HPI Musculoskeletal: Denies myalgias Musculoskeletal: absent: ankle pain, ankle stiffness, ankle swelling Integumentary: Denies pruritus, Denies rash Neurological: Reports weakness Psychiatric: Denies anxiety, Denies depression Endocrine: Reports fatigue Past Medical History Past Medical History: Atrial Fibrillation, Coronary Artery Disease (CAD), GERD/ Reflux, Hyperlipidemia, Hypertension, Myocardial Infarction (SD), Prostate Disorder, Respiratory Disorder Additional Past Medical History / Comment(s): Coronary artery disease with previous bypass surgery, CHF with an ejection fraction of 20% with ischemic cardiomyopathy, AICD placement, chronic atrial fibrillation, BPH, acid reflux, hypertension, hyperlipidemia, previous myocardial infarction, acid reflux, chronic constipation Last Myocardial Infarction Date:: UNK History of Any Multi-Drug Resistant Organisms: None Reported Past Surgical History: AICD, Cholecystectomy, Coronary Bypass/CABG, Heart Catheterization, Pacemaker, Prostate Surgery Additional Past Surgical History / Comment(s): CABG-3 VESSEL, cardotid bypass - 2013 Past Anesthesia/Blood Transfusion Reactions: No Reported Reaction Additional Past Anesthesia/Blood Transfusion Reaction / Comment(s): GETS ANXIOUS WITH ANESTHESIA Type of Cardiac Device: AICD, Unknown Device Placement Date:: UNK initial placement, batteries replaced Oct 2013, LFT CHEST Past Psychological History: No Psychological Hx Reported Additional Psychological History / Comment(s): PT SERVED IN [employer] WHEN HE LIVED IN [facility]. RETIRED FROM WORKING IN [employer]. 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 RECIEVES NO OUTSIDE SERVICES, USES NO CANE OR WALKER AND [place]. Smoking Status: Light tobacco smoker Past Alcohol Use History: None Reported Additional Past Alcohol Use History / Comment(s): QUIT SMOKING APPROX 2003, STARTED SMOKING AT APPROX 11 YRS OF AGE Past Drug Use History: None Reported - Past Family History Mother History Unknown: Yes Family Medical History: Diabetes Mellitus, Hypertension Additional Family Medical History / Comment(s): heart issues Father Family Medical History: Cancer Medications and Allergies Home Medications Medication Instructions Recorded Confirmed Type Aspirin 81 mg PO HS 06/27/13 05/17/17 History Lansoprazole 30 mg PO BID 06/27/13 05/17/17 History Metoprolol Succinate [Toprol XL] 50 mg PO DAILY 06/27/13 05/17/17 History Pravastatin Sodium [Pravachol] 80 mg PO HS 06/27/13 05/17/17 History Amiodarone HCl 200 mg PO DAILY 06/28/13 05/17/17 History Montelukast [Singulair] 10 mg PO HS 11/23/15 05/17/17 History sitaGLIPtin [Januvia] 100 mg PO DAILY 03/27/16 05/17/17 History Lisinopril [Zestril] 2.5 mg PO HS 06/25/16 05/17/17 History Polyethylene Glycol 3350 [Miralax] 17 gm PO DAILY 06/25/16 05/17/17 History Albuterol Nebulized [Ventolin 2.5 mg INHALATION RT-Q6H PRN 02/11/17 05/17/17 History Nebulized] Cetirizine HCl 10 mg PO DAILY 02/11/17 05/17/17 History FLUoxetine HCL [PROzac] 20 mg PO DAILY 02/11/17 05/17/17 History Furosemide [Lasix] 40 mg PO BID 02/11/17 05/17/17 History Lubiprostone [Amitiza] 24 mcg PO DAILY PRN 02/11/17 05/17/17 History ALPRAZolam [Xanax] 0.25 mg PO HS PRN 05/17/17 05/17/17 History Allergies Allergy/AdvReac Type Severity Reaction Status Date / Time Penicillins Allergy Rash/Hives Verified 05/17/17 09:24 Physical Exam Vitals: Vital Signs Temp Pulse Pulse Resp BP BP Pulse Ox 05/18/17 12:00 97.0 F L 82 18 132/62 94 L 05/18/17 11:50 90 05/18/17 11:40 85 05/18/17 08:00 97.2 F L 79 16 142/67 90 L 05/18/17 04:00 97.1 F L 76 16 137/71 92 L 05/18/17 00:00 97.3 F L 68 20 124/80 92 L 05/17/17 20:00 98.0 F 68 20 114/66 90 L 05/17/17 18:17 98.0 F 65 20 123/65 96 05/17/17 16:02 97.7 F 62 18 125/65 98 Intake and Output 05/18/17 05/18/17 05/18/17 06:59 14:59 22:59 Intake Total 240 Output Total 300 300 400 Balance -300 -60 -400 Intake: Oral 240 Output: Urine 300 300 400 Other: Voiding Method Indwelling Catheter Indwelling Catheter Weight 79.5 kg 79.5 kg GENERAL EXAM: Alert, comfortable in no apparent distress. HEAD: Normocephalic. EYES: Normal reaction of pupils, equal size. NOSE: Clear with pink turbinates. THROAT: No erythema or exudates. NECK: No masses, no JVD. CHEST: No chest wall deformity. LUNGS: Asymmetric air entry with no crackles, wheeze, rhonchi or dullness. The patient had diminished breath sounds on right lung base along with some dullness to percussion CVS: S1 and S2 normal with an audible murmur, regular rhythm. ABDOMEN: No hepatosplenomegaly, normal bowel sounds, no guarding or rigidity. SPINE: No scoliosis or deformity SKIN: No rashes CENTRAL NERVOUS SYSTEM: No focal deficits, tone is normal in all 4 extremities. EXTREMITIES: There is no peripheral edema. No clubbing, no cyanosis. Peripheral pulses are intact. Results - Laboratory Findings CBC and BMP: 05/18/17 06:01 05/18/17 06:01 ABG ABG pH 7.30 (7.35-7.45) L 05/17/17 10:14 ABG pCO2 51 mmHg (35-45) H 05/17/17 10:14 ABG pO2 77 mmHg (83-108) L 05/17/17 10:14 ABG O2 Saturation 93.7 % (94-97) L 05/17/17 10:14 PT/INR, D-dimer PT 10.6 sec (9.0-12.0) 05/17/17 08:43 INR 1.1 (<1.2) 05/17/17 08:43 Abnormal lab findings: Abnormal Labs 05/17/17 05/17/17 05/17/17 08:43 08:43 08:43 WBC 25.0 H* RBC Hgb MCHC 30.7 L Neutrophils # 17.8 H Lymphocytes # 5.1 H Monocytes # 1.4 H APTT ABG pH ABG pCO2 ABG pO2 ABG Total CO2 ABG O2 Saturation BUN Glucose 292 H POC Glucose (mg/dL) Plasma Lactic Acid Sixto Total Creatine Kinase 53 L Troponin I 0.038 H* Procalcitonin Urine Protein Urine Blood Ur Leukocyte Esterase Urine RBC Urine WBC Urine Mucus 05/17/17 05/17/17 05/17/17 08:43 08:43 10:14 WBC RBC Hgb MCHC Neutrophils # Lymphocytes # Monocytes # APTT 20.8 L ABG pH 7.30 L ABG pCO2 51 H ABG pO2 77 L ABG Total CO2 27 H ABG O2 Saturation 93.7 L BUN Glucose POC Glucose (mg/dL) Plasma Lactic Acid Sixto 5.3 H* Total Creatine Kinase Troponin I Procalcitonin Urine Protein Urine Blood Ur Leukocyte Esterase Urine RBC Urine WBC Urine Mucus 05/17/17 05/17/17 05/17/17 13:01 16:44 16:44 WBC RBC Hgb MCHC Neutrophils # Lymphocytes # Monocytes # APTT ABG pH ABG pCO2 ABG pO2 ABG Total CO2 ABG O2 Saturation BUN Glucose POC Glucose (mg/dL) Plasma Lactic Acid Sixto 2.7 H* 2.3 H* Total Creatine Kinase Troponin I 0.085 H* Procalcitonin Urine Protein Urine Blood Ur Leukocyte Esterase Urine RBC Urine WBC Urine Mucus 05/17/17 05/17/17 05/17/17 16:44 17:35 20:51 WBC RBC Hgb MCHC Neutrophils # Lymphocytes # Monocytes # APTT ABG pH ABG pCO2 ABG pO2 ABG Total CO2 ABG O2 Saturation BUN Glucose POC Glucose (mg/dL) 151 H Plasma Lactic Acid Sixto 3.3 H* Total Creatine Kinase Troponin I Procalcitonin 0.72 H Urine Protein Urine Blood Ur Leukocyte Esterase Urine RBC Urine WBC Urine Mucus 05/17/17 05/17/17 05/18/17 20:55 20:59 06:01 WBC 23.8 H RBC 4.29 L Hgb 12.9 L MCHC Neutrophils # 22.0 H Lymphocytes # Monocytes # APTT 49.8 H ABG pH ABG pCO2 ABG pO2 ABG Total CO2 ABG O2 Saturation BUN Glucose POC Glucose (mg/dL) 234 H Plasma Lactic Acid Sixot Total Creatine Kinase Troponin I Procalcitonin Urine Protein Urine Blood Ur Leukocyte Esterase Urine RBC Urine WBC Urine Mucus 05/18/17 05/18/17 05/18/17 06:01 06:01 06:11 WBC RBC Hgb MCHC Neutrophils # Lymphocytes # Monocytes # APTT 50.7 H ABG pH ABG pCO2 ABG pO2 ABG Total CO2 ABG O2 Saturation BUN 26 H Glucose 136 H POC Glucose (mg/dL) 135 H Plasma Lactic Acid Sixto Total Creatine Kinase Troponin I Procalcitonin Urine Protein Urine Blood Ur Leukocyte Esterase Urine RBC Urine WBC Urine Mucus 05/18/17 05/18/17 09:00 11:34 WBC RBC Hgb MCHC Neutrophils # Lymphocytes # Monocytes # APTT ABG pH ABG pCO2 ABG pO2 ABG Total CO2 ABG O2 Saturation BUN Glucose POC Glucose (mg/dL) 103 H Plasma Lactic Acid Sixto Total Creatine Kinase Troponin I Procalcitonin Urine Protein Trace H Urine Blood Moderate H Ur Leukocyte Esterase Small H Urine RBC 25 H Urine WBC 8 H Urine Mucus Rare H - Diagnostic Findings Chest x-ray: image reviewed CT scan - chest: image reviewed Assessment and Plan Plan: Impression: #1 acute on top of chronic dyspnea currently under investigation. CT angios the chest was noted and the patient may have an underlying questionable subsegmental pulmonary embolism involving the left lower lobe pulmonary artery branches. Nevertheless, the rest of the CAT scan findings is consistent with fluid overload, pulmonary edema and development of a right-sided pleural effusion and all these are inconsistent with his history of CHF. #2 Acute exacerbation of chronic systolic congestive heart failure with a ejection fraction 20% to 25%. The patient has severe ischemic artery myopathy with a previous biventricular AICD placement #3 acute leukocytosis, acute lactic acidosis mild which is currently under investigation. Rule out underlying infection/sepsis #4 Coronary artery disease with previous coronary artery bypass grafting. #5 Chronic obstructive pulmonary disease, currently inactive and stable. #6 Hyperlipidemia. #7 Hypertension. #8 Gastroesophageal reflux disease. #9 Remote history of smoking for greater than 30 years however quit in 2003. #10 Carotid artery disease with previous carotid endarterectomy #11 Prostatic hypertrophy. Plan I discussed the findings with the patient and his in law, [id number]. I'm not absolutely convinced that we are dealing with a pulmonary embolism situation. We'll put the patient IV heparin and will also obtain Doppler of the lower extremity to see if there is any clotting in the lower extremities. This may support the diagnosis of pulmonary embolism if present. Meanwhile, monitor the white cell count and watch for any signs of septicemia. The patient is currently on no antibiotics. Continue the Lasix orally 40 mg given 8 hours. May consider a thoracentesis of the sizable right-sided pleural effusion and for that reason we'll obtain a ultrasound of the right chest with markings. Cardiology evaluation. Repeat echocardiogram. Monitor the white count. We'll continue to follow.
--- NOTE | 2017-05-18 16:35 | US ---
EXAMINATION TYPE: US venous doppler duplex LE DATE OF EXAM: 05/18/2017 3:55 PM COMPARISON: NONE CLINICAL HISTORY: PE. On heparin. No swelling or redness. SIDE PERFORMED: Bilateral TECHNIQUE: The lower extremity deep venous system is examined utilizing real time linear array sonog munira with graded compression, doppler sonography and color-flow sonography. VESSELS IMAGED: External Iliac Vein (EIV) Common Femoral Vein Deep Femoral Vein Greater Saphenous Vein * Femoral Vein Popliteal Vein Small Saphenous Vein * Proximal Calf Veins (* superficial vessels) Right Leg: Negative for DVT Left Leg: Negative for DVT. Prominent popliteal valves seen and mid dilatation. IMPRESSION: 1. No diagnostic evidence of DVT.
[2017-05-18 16:59] LABS: Glucose,Whole Blood 118 mg/dL (75-99)
--- NOTE | 2017-05-18 19:42 | US ---
EXAMINATION TYPE: US chest DATE OF EXAM: 05/18/2017 COMPARISON: NONE CLINICAL HISTORY: Right-sided pleural effusion. EXAM MEASUREMENTS: Right Pleural Effusion fluid pocket: 3.3 cm Right skin to fluid thickness: 3.2 cm Left Pleural Effusion fluid pocket: no fluid Right side marked for possible thoracentesis outside the dept. Left side marked for possible thoracentesis outside the dept. Pulmonologists are able to review the images in the patient?s EMR. IMPRESSIONS: There is demonstration of moderate right pleural effusion with pleural fluid that measur es 3.5 cm in thickness.
[2017-05-18] MEDS: ASPIRIN 81 MG PO SCH (20:44)
[2017-05-18] MEDS: MONTELUKAST 10 MG TAB PO SCH (20:44)
[2017-05-18] MEDS: LISINOPRIL 2.5 MG TAB PO SCH (20:44)
[2017-05-18] MEDS: PRAVASTATIN SODIUM 80 MG TAB PO SCH (20:44)
[2017-05-18] MEDS: HEPARIN SOD,PORK IN 0.45% NACL 25,000 UNIT in 0.45% NACL 1 500ML.BAG IV SCH (20:45)
[2017-05-18 21:06] LABS: Glucose,Whole Blood 122 mg/dL (75-99)
--- NOTE | 2017-05-18 22:08 | PN ---
PROGRESS NOTE DATE OF SERVICE: May 18, 2017. PRESENTING COMPLAINT: Short of breath. INTERVAL HISTORY: This patient admitted with acute CHF exacerbation and also pulmonary embolism. The latter which appears to be less likely cause of his presentation. The patient is feeling much better after coming in, has been on IV Lasix. The patient's daughter in law at the bedside. Did tolerate some diet. Does not have any edema. The patient has elevated white count, but no obvious infective symptoms. REVIEW OF SYSTEMS: Done for constitutional, cardiovascular, GI, pulmonary, relevant findings as above. CURRENT MEDICATIONS: Reviewed that include IV heparin, Cordarone, Toprol-XL. PHYSICAL EXAMINATION: Temperature 97, pulse 82, respiratory 18, blood pressure 132/62, pulse ox 94% on 3 L. General appearance: Sitting up, not in distress. Eyes pupils equal. Conjunctivae normal. HEENT external appearance of nose and ears normal. Decreased hearing. Neck JVD possibly raised. Mass not palpable. Respiratory effort increased. Lungs decreased breath sounds. Cardiovascular 1st and second sounds normal. No edema. ABDOMEN: Soft, nontender. Liver and spleen not palpable. Psychiatry: Alert and oriented x3. Mood and affect normal. INVESTIGATIONS: White count 23.8, potassium 4.4, BUN 26, creatinine 0.80. Chest CTA from yesterday showed pulmonary embolism in the posterior lower lobe pulmonary artery on the left, bilateral effusions, larger on the right than the left. Venous Dopplers negative for DVT. 2D echocardiogram showing moderate pulmonary hypertension. EF 20-25%. ASSESSMENT: 1. Acute on chronic congestive heart failure exacerbation from systolic dysfunction EF 20-25% from underlying coronary artery disease. 2. Coronary artery disease prior history of coronary artery bypass. 3. Acute pulmonary embolism does not appear to be contributing to his clinical presentation. 4. Leukocytosis, cause unclear at this point. There is no obvious source of infection. 5. Chronic obstructive pulmonary disease in an ex-smoker. 6. Hyperlipidemia. 7. Essential hypertension. 8. Gastroesophageal reflux disease. 9. AICD. 10.Benign prostatic hypertrophy. 11.History of atrial fibrillation. 12.IV heparin monitoring. PLAN: The patient had been on IV Lasix now switched over to p.o. Lasix. Patient has felt significantly better. Remain on IV heparin until the final determination made by Pulmonary. The patient can be switched over to one of the NOACs. Care was discussed in detail with the patient and his daughter in law at the bedside. Will add a small dose of Aldactone. Repeat a CBC with diff in the morning. Copy to Dr. Mccrary. ARTEMIO / GARCÍA: [id number] /
[2017-05-18] MEDS: ALPRAZolam 0.25 MG TAB PO PRN (22:48)
[2017-05-19 06:17] LABS: Glucose,Whole Blood 103 mg/dL (75-99)
[2017-05-19] MEDS: HEPARIN SOD,PORK IN 0.45% NACL 25,000 UNIT in 0.45% NACL 1 500ML.BAG IV SCH (06:35)
[2017-05-19 07:06] LABS: Basophils % (A) 0 %; Eosinophils % (A) 0 %; HGB 13.1 gm/dL (13.0-17.5); Lymphocytes # (A) 1.8 k/uL (1.0-4.8); Lymphocytes % (A) 9 %; MCH 30.4 pg (25.0-35.0); MCHC 32.7 g/dL (31.0-37.0); MCV 92.8 fL (80.0-100.0); Mean Platelet Volume 7.6; Monocytes # (A) 1.1 k/uL (0-1.0); Monocytes % (A) 5 %; Neutrophils % (A) 85 %; Platelet Count 241 k/uL (150-450); RBC 4.31 m/uL (4.30-5.90); RDW 14.7 % (11.5-15.5); WBC 21.1 k/uL (3.8-10.6)
[2017-05-19 07:45] LABS: Anion Gap 9 mmol/L; Blood Urea Nitrogen 27 mg/dL (9-20); Calcium 8.9 mg/dL (8.4-10.2); Carbon Dioxide 32 mmol/L (22-30); Chloride 100 mmol/L (98-107); Glucose 100 mg/dL (74-99); Potassium 4.2 mmol/L (3.5-5.1); Sodium 141 mmol/L (137-145)
[2017-05-19] MEDS ORDERED: HEPARIN SODIUM,PORCINE 5,000 UNIT/ML 1 ML VIAL IV PRN ×2 (08:23→08:39)
--- NOTE | 2017-05-19 08:36 | XR ---
EXAMINATION TYPE: XR chest 1V DATE OF EXAM: 05/19/2017 COMPARISON: Prior chest x-ray 05/17/2017 HISTORY: Congestive heart failure TECHNIQUE: Single frontal view of the chest is obtained. FINDINGS: Intracardiac defibrillator leads are stable. Patient is post median sternotomy and the hea rt remains enlarged. No evident pneumothorax. Technique is apical lordotic. There may be pleural effu sions. Interstitium and central vascularity are increased. IMPRESSION: Findings compatible with patient's history of congestive heart failure. Pleural effusion present greater on the right.
[2017-05-19] MEDS: LORATADINE 10 MG TAB PO SCH (08:48)
[2017-05-19] MEDS: FUROSEMIDE 40 MG TAB PO SCH ×3 (08:48→22:56)
[2017-05-19] MEDS: AMIODARONE 200 MG TAB PO SCH (08:48)
[2017-05-19] MEDS: FLUoxetine HCL 20 MG CAP PO SCH (08:48)
[2017-05-19] MEDS: LINAGLIPTIN 5 MG TABLET PO SCH (08:48)
[2017-05-19] MEDS: SPIRONOLACTONE 25 MG TAB PO SCH (08:49)
[2017-05-19] MEDS: PANTOPRAZOLE 40 MG TABLET PO SCH ×2 (08:49→21:22)
[2017-05-19] MEDS: POLYETHYLENE GLYCOL 3350 17 GM POWD.PACK PO SCH (08:49)
[2017-05-19] MEDS: METOPROLOL SUCCINATE (ER) 50 MG TAB.ER.24H PO SCH (08:49)
[2017-05-19] MEDS ORDERED: FUROSEMIDE 10 MG/ML 4 ML VIAL IV STA (11:17)
[2017-05-19 11:31] LABS: Glucose,Whole Blood 106 mg/dL (75-99)
[2017-05-19] MEDS: APIXABAN 5 MG TAB PO SCH ×2 (14:10→21:21)
--- NOTE | 2017-05-19 14:18 | P.PN ---
Subjective Progress Note Date: 05/19/17 Principal diagnosis: Acute on chronic dyspnea secondary to acute systolic congestive heart failure, pulmonary edema, with right-sided pleural effusion. And subsegmental pulmonary embolism in the left lower lobe pulmonary artery branch 71-year-old male patient with previous history of coronary artery disease and previous bypass surgery, cardiomyopathy of an ischemic type with an ejection fraction of around 20% and the patient has an AICD in place in addition history of insulin-dependent diabetes mellitus, hypertension, hyperlipidemia and peripheral vascular disease with carotid artery involvement. The patient presented to the hospital because of worsening shortness of breath. The patient claims that he was having difficulties with sitting up and performing activities of the routine day-to-day life. He denied having any chest pain. No cough or sputum production. No hemoptysis or wheezing. No pleurisy. He had no fever. He felt that he was coming down with an upper respiratory tract infection. Nevertheless, upon arrival, his white cell count was elevated at 25, 000 and he had also some mild lactic acidosis. He did not have any significant changes in his body weight. His chest x-ray showed some increased haziness in lung bases especially on the right along with some cardiomegaly. Based on that a CT angios the chest was done and it showed a questionable subsegmental pulmonary embolism in the left lower lobe. There was a moderate-sized right- sided pleural effusion along with that there is evidence of pulmonary vessel congestion. The patient was started on IV heparin. Note that he has not been on any anticoagulation the past. No previous history of DVT or pulmonary embolism. No previous history of any bleeding complications. The patient is feeling slightly better compared to yesterday. He briefly went on a BiPAP which was subsequently discontinued. He denies having any angina. No palpitation. No significant changes cardiac rhythm which is paced at this point. On 05/19/2017 patient seen in follow-up on selective care unit. He states early this morning at 3 AM he had an episode of respiratory distress, he was laying down flat at the time, and he had to sit up, and sit in the tripod position leaning over a table, and the dyspnea did subside. He states he did not call anybody for help. His IV diuretics have been switched to oral diuretics, he is maintaining negative fluid balance, and over last 24 hours he is in -1359 fluid balance. His lung sounds are positive for bilateral bases coarse crackles. He is on 2-3 L per nasal cannula, with O2 sat between 92-100% . He normally wears oxygen on a as needed basis at home, and at bedtime at 2 L/ m. Patient remains on IV heparin for the subsegmental pulmonary embolism, yesterday we discussed with the patient the need for chronic anticoagulation in view of his severe cardiomyopathy. Patient's coverage was checked, and appears that she will be covered for Eliquis. We will start Eliquis today, and stop the IV heparin. Patient's ultrasound of the chest was reviewed, right pleural effusion pocket of 3.3 cm, not a sizable amount of pleural effusion for thoracentesis. Bilateral lower leg ultrasounds were negative for DVTs. No plans for thoracentesis at this time, we will go ahead and start the Eliquis today. Patient received an extra dose of IV Lasix today, and he states overall his breathing has improved since admission. Objective - Vital Signs Vital signs: Vital Signs Temp 97.2 F L 05/19/17 11:23 Pulse 68 05/19/17 11:23 Resp 16 05/19/17 11:23 BP 143/73 05/19/17 11:23 Pulse Ox 100 05/19/17 11:23 Intake & Output 05/18/17 05/19/17 05/19/17 18:59 06:59 18:59 Intake Total 1100 240.818 402.858 Output Total 700 2000 Balance 400 -1759.182 402.858 Weight 79.5 kg 80 kg Intake: Intake, IV Titration 500 240.818 42.858 Amount Heparin Sod,Pork in 0.45% 500 240.818 42.858 NaCl 25,000 unit In 0.45 % NaCl 1 500ml.bag @ 18 UNITS/KG/HR 24.49 mls/hr IV .[id number] [facility] Rx#: [id number] Oral 600 360 Output: Urine 700 2000 Uretheral (Lion) 1100 Other: Voiding Method Indwelling Catheter Indwelling Catheter Indwelling Catheter - Exam GENERAL EXAM: Alert, pleasant, 71-year-old white male, comfortable in no apparent distress. HEAD: Normocephalic/atraumatic. EYES: Normal reaction of pupils, equal size. Conjunctiva pink, sclera white. NOSE: Clear with pink turbinates. THROAT: No erythema or exudates. NECK: No masses, no JVD, no thyroid enlargement, no adenopathy. CHEST: No chest wall deformity. Symmetrical expansion. LUNGS: Equal air entry with coarse bibasilar crackles CVS: Regular rate and rhythm, normal S1 and S2, no gallops, no murmurs, no rubs ABDOMEN: Soft, nontender. No hepatosplenomegaly, normal bowel sounds, no guarding or rigidity. EXTREMITIES: No clubbing, no edema, no cyanosis, 2+ pulses and upper and lower extremities. MUSCULOSKELETAL: Muscle strength and tone normal. SPINE: No scoliosis or deformity SKIN: No rashes CENTRAL NERVOUS SYSTEM: Alert and oriented -3. No focal deficits, tone is normal in all 4 extremities. PSYCHIATRIC: Alert and oriented -3. Appropriate affect. Intact judgment and insight. - Labs CBC & Chem 7: 05/19/17 06:17 05/19/17 06:17 Labs: Abnormal Lab Results - Last 24 Hours (Table) 05/18/17 05/18/17 05/19/17 Range/Units 16:51 21:03 06:14 WBC (3.8-10.6) k/uL Neutrophils # (1.3-7.7) k/uL Monocytes # (0-1.0) k/uL APTT (22.0-30.0) sec Carbon Dioxide (22-30) mmol/L BUN (9-20) mg/dL Glucose (74-99) mg/dL POC Glucose (mg/dL) 118 H 122 H 103 H (75-99) mg/dL 05/19/17 05/19/17 05/19/17 Range/Units 06:17 06:17 06:17 WBC 21.1 H (3.8-10.6) k/uL Neutrophils # 18.0 H (1.3-7.7) k/uL Monocytes # 1.1 H (0-1.0) k/uL APTT 39.7 H (22.0-30.0) sec Carbon Dioxide 32 H (22-30) mmol/L BUN 27 H (9-20) mg/dL Glucose 100 H (74-99) mg/dL POC Glucose (mg/dL) (75-99) mg/dL 05/19/17 Range/Units 11:25 WBC (3.8-10.6) k/uL Neutrophils # (1.3-7.7) k/uL Monocytes # (0-1.0) k/uL APTT (22.0-30.0) sec Carbon Dioxide (22-30) mmol/L BUN (9-20) mg/dL Glucose (74-99) mg/dL POC Glucose (mg/dL) 106 H (75-99) mg/dL Microbiology - Last 24 Hours (Table) 05/18/17 09:00 Urine Culture - Final Urine,Clean Catch 05/17/17 08:43 Blood Culture - Preliminary Blood No Growth after 48 hours 05/17/17 16:44 Blood Culture - Preliminary Blood No Growth after 24 hours Assessment and Plan Plan: Assessment: #1 acute on top of chronic dyspnea currently under investigation. CT angios the chest was noted and the patient may have an underlying questionable subsegmental pulmonary embolism involving the left lower lobe pulmonary artery branches. Nevertheless, the rest of the CAT scan findings is consistent with fluid overload, pulmonary edema and development of a right-sided pleural effusion and all these are consistent with his history of CHF. #2 Acute exacerbation of chronic systolic congestive heart failure with a ejection fraction 20% to 25%. The patient has severe ischemic artery myopathy with a previous biventricular AICD placement #3 acute leukocytosis, acute lactic acidosis mild which is currently under investigation. Rule out underlying infection/sepsis #4 Coronary artery disease with previous coronary artery bypass grafting. #5 Chronic obstructive pulmonary disease, currently inactive and stable. #6 Hyperlipidemia. #7 Hypertension. #8 Gastroesophageal reflux disease. #9 Remote history of smoking for greater than 30 years however quit in 2003. #10 Carotid artery disease with previous carotid endarterectomy #11 Prostatic hypertrophy. Plan Patient's ultrasound of the chest, venous Dopplers, today's chest x-ray been reviewed. The ultrasound on the chest showed a small right-sided pleural effusion, not sizable enough for thoracentesis. Continue diuresis, patient has been improved for Eliquis, and says were not planning in the any thoracentesis at this time, we'll initiate Eliquis today. Patient's blood and urine cultures remain negative. Patient denies any chest congestion or sputum production. He is afebrile, his white count is trending down, although remains elevated at 21.1. Denies any urinary complaints. I performed a history & physical examination of the patient and discussed their management with my nurse practitioner, Lizzy Vo. I reviewed the nurse practitioner's note and agree with the documented findings and plan of care. Lung sounds are positive coarse bibasilar rales. The findings and the impression was discussed with the patient. I attest to the documentation by the nurse practitioner. Time with Patient: Less than 30
[2017-05-19 15:28] VITALS: TEMP 97.6
--- NOTE | 2017-05-19 15:40 | P.PN ---
Subjective Progress Note Date: 05/19/17 This is a pleasant 71-year-old gentleman who follows with Dr. Hall in the office. Has a known history of coronary artery disease, status post CABG, ischemic cardiomyopathy, status post bi-V ICD, hypertension, dyslipidemia and diabetes. Presented to the hospital for progressively worsening shortness of breath. Patient underwent CTA of the chest showed left lower lobe pulmonary artery PE and he was initiated on IV heparin. He has been started on oral anticoagulation today. Upon examination, patient continues to complain of some shortness of breath with activity. He had one episode early this morning of sudden shortness of breath that resolved after about 2 hours. He has been given one dose of IV Lasix today. Objective - Vital Signs Vital signs: Vital Signs Temp 97.6 F 05/19/17 15:27 Pulse 69 05/19/17 15:27 Resp 18 05/19/17 15:27 BP 138/62 05/19/17 15:27 Pulse Ox 98 05/19/17 15:27 Intake & Output 05/18/17 05/19/17 05/19/17 18:59 06:59 18:59 Intake Total 1100 240.818 642.858 Output Total 700 2000 1100 Balance 400 -1759.182 -457.142 Weight 79.5 kg 80 kg Intake: Intake, IV Titration 500 240.818 42.858 Amount Heparin Sod,Pork in 0.45% 500 240.818 42.858 NaCl 25,000 unit In 0.45 % NaCl 1 500ml.bag @ 18 UNITS/KG/HR 24.49 mls/hr IV .[id number] [facility] Rx#: [id number] Oral 600 600 Output: Urine 700 2000 1100 Uretheral (Lion) 1100 Other: Voiding Method Indwelling Catheter Indwelling Catheter Indwelling Catheter - Exam PHYSICAL EXAMINATION: HEENT: Head is atraumatic, normocephalic. Pupils equal, round. Neck is supple. There is no elevated jugular venous pressure. HEART EXAMINATION: Heart sounds regular, S1 and S2 normal. No murmur or gallop heard. CHEST EXAMINATION: Lungs reveal expiratory wheezing throughout with faint crackles bilateral bases. No chest wall tenderness is noted on palpation or with deep breathing. ABDOMEN: Soft, nontender. Bowel sounds are heard. No organomegaly noted. EXTREMITIES: 2+ peripheral pulses with no evidence of peripheral edema and no calf tenderness noted. NEUROLOGIC patient is awake, alert and oriented x3. . - Labs CBC & Chem 7: 05/19/17 06:17 05/19/17 06:17 Labs: Abnormal Lab Results - Last 24 Hours (Table) 05/18/17 05/18/17 05/19/17 Range/Units 16:51 21:03 06:14 WBC (3.8-10.6) k/uL Neutrophils # (1.3-7.7) k/uL Monocytes # (0-1.0) k/uL APTT (22.0-30.0) sec Carbon Dioxide (22-30) mmol/L BUN (9-20) mg/dL Glucose (74-99) mg/dL POC Glucose (mg/dL) 118 H 122 H 103 H (75-99) mg/dL 05/19/17 05/19/17 05/19/17 Range/Units 06:17 06:17 06:17 WBC 21.1 H (3.8-10.6) k/uL Neutrophils # 18.0 H (1.3-7.7) k/uL Monocytes # 1.1 H (0-1.0) k/uL APTT 39.7 H (22.0-30.0) sec Carbon Dioxide 32 H (22-30) mmol/L BUN 27 H (9-20) mg/dL Glucose 100 H (74-99) mg/dL POC Glucose (mg/dL) (75-99) mg/dL 05/19/17 Range/Units 11:25 WBC (3.8-10.6) k/uL Neutrophils # (1.3-7.7) k/uL Monocytes # (0-1.0) k/uL APTT (22.0-30.0) sec Carbon Dioxide (22-30) mmol/L BUN (9-20) mg/dL Glucose (74-99) mg/dL POC Glucose (mg/dL) 106 H (75-99) mg/dL Microbiology - Last 24 Hours (Table) 05/18/17 09:00 Urine Culture - Final Urine,Clean Catch 05/17/17 08:43 Blood Culture - Preliminary Blood No Growth after 48 hours 05/17/17 16:44 Blood Culture - Preliminary Blood No Growth after 24 hours Assessment and Plan Assessment: #1 acute pulmonary embolism #2 CAD, status post CABG #3 ischemic cardiomyopathy, status post biventricular ICD #4 chronic systolic congestive heart failure Plan: From cardiology perspective, we agree with starting Eliquis per PE protocol. Medications are reviewed and will continue the same. We will continue to follow the patient provide further recommendations accordingly. The above dictated assessment and findings were discussed with signing physician. The impression and plan of care have been directed as dictated. Anais Gann, Nurse Practitioner, acting as scribe for signing physician.
[2017-05-19 16:55] LABS: Glucose,Whole Blood 106 mg/dL (75-99)
[2017-05-19 20:34] LABS: Glucose,Whole Blood 105 mg/dL (75-99)
[2017-05-19] MEDS: PRAVASTATIN SODIUM 80 MG TAB PO SCH (21:21)
[2017-05-19] MEDS: ASPIRIN 81 MG PO SCH (21:21)
[2017-05-19] MEDS: LISINOPRIL 2.5 MG TAB PO SCH (21:21)
[2017-05-19] MEDS: MONTELUKAST 10 MG TAB PO SCH (21:22)
[2017-05-19 21:54] VITALS: RESP 16
[2017-05-19] MEDS: ALPRAZolam 0.25 MG TAB PO PRN (22:56)
--- NOTE | 2017-05-20 00:01 | PN ---
PROGRESS NOTE DATE OF SERVICE: 05/19/2017. PRESENTING COMPLAINT: Short of breath. INTERVAL HISTORY: Patient admitted with CHF exacerbation and pulmonary embolism. It is better since he was admitted, but gets easily short-winded when getting about. When I saw the patient this morning, he had some crackles in the lungs. I ordered an extra dose of IV Lasix. Daughter and son are present at the bedside. The patient otherwise tolerating a diet. REVIEW OF SYSTEMS: Done for constitutional, cardiovascular, GI, pulmonary, relevant findings as above. CURRENT MEDICATIONS: Include p.o. Lasix 40 mg q.8. EXAMINATION: Temperature 97, pulse 65, respirations 16, blood pressure 127/62, pulse ox 92% on 2L. GENERAL APPEARANCE: Sitting up, tired-appearing. EYES: Pupil equal. Conjunctivae normal. HEENT: External nose and ears normal. Decreased hearing. NECK: JVD possibly raised. Mass not palpable. RESPIRATORY: Effort increased. LUNGS: Basal crackles. CARDIOVASCULAR: First and second sounds normal. No edema. ABDOMEN: Soft, nontender. Liver and spleen not palpable. PSYCHIATRY: Alert and oriented x3. Mood and affect were normal. INVESTIGATIONS: White count 21.1, increased neutrophils. BUN 27, creatinine 0.84. ASSESSMENT: 1. Acute on chronic congestive heart failure exacerbation from systolic dysfunction, ejection fraction 20%-25%, underlying coronary artery disease. 2. Coronary artery disease with prior history of coronary bypass. 3. Acute pulmonary embolism. 4. Leukocytosis, cause unclear at this point. No source of infection noted. 5. Chronic obstructive pulmonary disease in an ex-smoker. 6. Hyperlipidemia. 7. Essential hypertension. 8. Gastroesophageal reflux disease. 9. Automatic implantable cardioverter-defibrillator. 10.Benign prostatic hypertrophy. 11.History of atrial fibrillation. PLAN: I did give patient extra dose of IV Lasix. He seems to be fluid overloaded. Let us see how he does after that. The patient will be started on oral anticoagulation. Repeat a chest x-ray, BNP in the morning and see how the patient fares. MMODL / IJN: [id number] /
[2017-05-20 05:42] LABS: Glucose,Whole Blood 110 mg/dL (75-99)
[2017-05-20 06:48] LABS: Calcium 9.2 mg/dL (8.4-10.2); Potassium 4.1 mmol/L (3.5-5.1)
--- NOTE | 2017-05-20 07:50 | XR ---
EXAMINATION TYPE: XR chest 2V DATE OF EXAM: 05/20/2017 COMPARISON: 05/19/2017 HISTORY: 71-year-old male follow-up CHF TECHNIQUE: Frontal and lateral views FINDINGS: Left anterior chest wall AICD generator with right atrial, right ventricular, and coronary sinus lead s. Median sternotomy wires are present. Heart mildly enlarged with diffuse interstitial densities and small right and trace left effusions. There is hyperinflation with flattening of the hemidiaphragms. IMPRESSION: 1. COPD with continued CHF and pulmonary vascular congestion/mild interstitial edema. There are techn ical differences between the exams making direct comparison difficult. There may be slight improvemen t in the interval. 2. Continued small right pleural effusion with adjacent atelectasis and/or consolidation.
[2017-05-20 11:53] LABS: Glucose,Whole Blood 95 mg/dL (75-99)
[2017-05-20] MEDS: FLUoxetine HCL 20 MG CAP PO SCH (11:53)
[2017-05-20] MEDS: PANTOPRAZOLE 40 MG TABLET PO SCH (11:53)
[2017-05-20] MEDS: FUROSEMIDE 20 MG TAB PO SCH ×2 (11:53→15:30)
[2017-05-20] MEDS: LORATADINE 10 MG TAB PO SCH (11:53)
[2017-05-20] MEDS: LINAGLIPTIN 5 MG TABLET PO SCH (11:53)
[2017-05-20] MEDS: METOPROLOL SUCCINATE (ER) 50 MG TAB.ER.24H PO SCH (11:53)
[2017-05-20] MEDS: APIXABAN 5 MG TAB PO SCH (11:53)
[2017-05-20] MEDS: AMIODARONE 200 MG TAB PO SCH (11:54)
[2017-05-20] MEDS: SPIRONOLACTONE 25 MG TAB PO SCH (11:54)
[2017-05-20] MEDS: POLYETHYLENE GLYCOL 3350 17 GM POWD.PACK PO SCH (11:57)
[2017-05-20] MEDS: IPRATROPIUM-ALBUTEROL 3 ML NEB INHALATION SCH (14:02)
--- NOTE | 2017-05-20 14:36 | P.PN ---
Subjective Progress Note Date: 05/20/17 Principal diagnosis: PE This is a pleasant 71-year-old gentleman who follows with Dr. Hall in the office. Has a known history of coronary artery disease, status post CABG, ischemic cardiomyopathy, status post bi-V ICD, hypertension, dyslipidemia and diabetes. Presented to the hospital for progressively worsening shortness of breath. Patient underwent CTA of the chest showed left lower lobe pulmonary artery PE . Patient is currently on Eliquis per PE protocol. Breathing is stable overall. Blood pressure 115/56, heart rate in the 60s. Objective - Vital Signs Vital signs: Vital Signs Temp 97.6 F 05/19/17 15:27 Pulse 69 05/20/17 00:00 Resp 16 05/20/17 00:00 BP 115/56 05/20/17 00:00 Pulse Ox 97 05/20/17 00:00 Intake & Output 05/19/17 05/20/17 05/20/17 18:59 06:59 18:59 Intake Total 1002.858 Output Total 1100 1401 Balance -97.142 -1401 Weight 75.5 kg Intake: Intake, IV Titration 42.858 Amount Heparin Sod,Pork in 0.45% 42.858 NaCl 25,000 unit In 0.45 % NaCl 1 500ml.bag @ 18 UNITS/KG/HR 24.49 mls/hr IV .[id number] [facility] Rx#: [id number] Oral 960 Output: Urine 1100 1401 Other: Voiding Method Indwelling Catheter - Exam PHYSICAL EXAMINATION: HEENT: Head is atraumatic, normocephalic. Pupils equal, round. Neck is supple. There is no elevated jugular venous pressure. HEART EXAMINATION: Heart sounds regular, S1 and S2 normal. No murmur or gallop heard. CHEST EXAMINATION: Lungs reveal expiratory wheezing throughout with faint crackles bilateral bases. No chest wall tenderness is noted on palpation or with deep breathing. ABDOMEN: Soft, nontender. Bowel sounds are heard. No organomegaly noted. EXTREMITIES: 2+ peripheral pulses with no evidence of peripheral edema and no calf tenderness noted. NEUROLOGIC patient is awake, alert and oriented x3. - Labs CBC & Chem 7: 05/19/17 06:17 05/20/17 06:06 Labs: Abnormal Lab Results - Last 24 Hours (Table) 05/19/17 05/19/17 05/20/17 Range/Units 16:23 20:30 05:41 Carbon Dioxide (22-30) mmol/L BUN (9-20) mg/dL Glucose (74-99) mg/dL POC Glucose (mg/dL) 106 H 105 H 110 H (75-99) mg/dL 05/20/17 Range/Units 06:06 Carbon Dioxide 31 H (22-30) mmol/L BUN 29 H (9-20) mg/dL Glucose 106 H (74-99) mg/dL POC Glucose (mg/dL) (75-99) mg/dL Microbiology - Last 24 Hours (Table) 05/17/17 08:43 Blood Culture - Preliminary Blood No Growth after 72 hours 05/17/17 16:44 Blood Culture - Preliminary Blood No Growth after 48 hours 05/18/17 09:00 Urine Culture - Final Urine,Clean Catch Assessment and Plan Plan: Assessment: #1 acute pulmonary embolism #2 CAD, status post CABG #3 ischemic cardiomyopathy, status post biventricular ICD #4 chronic systolic congestive heart failure Plan From cardiology's perspective, we will recommend to continue the patient on his current medications. We will follow him along with you now on an as-needed basis only. Please don't hesitate to call with any questions. On discharge we will set up a follow-up appointment to see Dr. VC Hall in the office post discharge. DNP note has been reviewed, I agree with a documented findings and plan of care. Patient was seen and examined.
--- NOTE | 2017-05-20 15:56 | P.PN ---
Subjective Progress Note Date: 05/20/17 71-year-old male patient with previous history of coronary artery disease and previous bypass surgery, cardiomyopathy of an ischemic type with an ejection fraction of around 20% and the patient has an AICD in place in addition history of insulin-dependent diabetes mellitus, hypertension, hyperlipidemia and peripheral vascular disease with carotid artery involvement. The patient presented to the hospital because of worsening shortness of breath. The patient claims that he was having difficulties with sitting up and performing activities of the routine day-to-day life. He denied having any chest pain. No cough or sputum production. No hemoptysis or wheezing. No pleurisy. He had no fever. He felt that he was coming down with an upper respiratory tract infection. Nevertheless, upon arrival, his white cell count was elevated at 25, 000 and he had also some mild lactic acidosis. He did not have any significant changes in his body weight. His chest x-ray showed some increased haziness in lung bases especially on the right along with some cardiomegaly. Based on that a CT angios the chest was done and it showed a questionable subsegmental pulmonary embolism in the left lower lobe. There was a moderate-sized right- sided pleural effusion along with that there is evidence of pulmonary vessel congestion. The patient was started on IV heparin. Note that he has not been on any anticoagulation the past. No previous history of DVT or pulmonary embolism. No previous history of any bleeding complications. The patient is feeling slightly better compared to yesterday. He briefly went on a BiPAP which was subsequently discontinued. He denies having any angina. No palpitation. No significant changes cardiac rhythm which is paced at this point. On 05/19/2017 patient seen in follow-up on selective care unit. He states early this morning at 3 AM he had an episode of respiratory distress, he was laying down flat at the time, and he had to sit up, and sit in the tripod position leaning over a table, and the dyspnea did subside. He states he did not call anybody for help. His IV diuretics have been switched to oral diuretics, he is maintaining negative fluid balance, and over last 24 hours he is in -1359 fluid balance. His lung sounds are positive for bilateral bases coarse crackles. He is on 2-3 L per nasal cannula, with O2 sat between 92-100% . He normally wears oxygen on a as needed basis at home, and at bedtime at 2 L/ m. Patient remains on IV heparin for the subsegmental pulmonary embolism, yesterday we discussed with the patient the need for chronic anticoagulation in view of his severe cardiomyopathy. Patient's coverage was checked, and appears that she will be covered for Eliquis. We will start Eliquis today, and stop the IV heparin. Patient's ultrasound of the chest was reviewed, right pleural effusion pocket of 3.3 cm, not a sizable amount of pleural effusion for thoracentesis. Bilateral lower leg ultrasounds were negative for DVTs. No plans for thoracentesis at this time, we will go ahead and start the Eliquis today. Patient received an extra dose of IV Lasix today, and he states overall his breathing has improved since admission. On 05/20/2017 the patient is being seen for a follow-up. Is improved significantly. Is less short of breath. He is on anticoagulation. Doppler lower extremities has been negative. The patient was in CHF. He diuresed significantly and the patient is negative fluid balance. His body weight has dropped down to 75.5 KG. Meanwhile currently the patient is off oxygen. He is on room air. Pulse oxing above 90% on room air. No palpitations. No chest pain. No swelling lower extremities. No fever or chills. No change in mental status. His communicating and he has no complaints. Objective - Vital Signs Vital signs: Vital Signs Temp 97.6 F 05/19/17 15:27 Pulse 69 05/20/17 00:00 Resp 16 05/20/17 00:00 BP 115/56 05/20/17 00:00 Pulse Ox 97 05/20/17 00:00 Intake & Output 05/19/17 05/20/17 05/20/17 18:59 06:59 18:59 Intake Total 1002.858 Output Total 1100 1401 Balance -97.142 -1401 Weight 75.5 kg Intake: Intake, IV Titration 42.858 Amount Heparin Sod,Pork in 0.45% 42.858 NaCl 25,000 unit In 0.45 % NaCl 1 500ml.bag @ 18 UNITS/KG/HR 24.49 mls/hr IV .[id number] [facility] Rx#: [id number] Oral 960 Output: Urine 1100 1401 Other: Voiding Method Indwelling Catheter - Exam GENERAL EXAM: Alert, pleasant, 71-year-old white male, comfortable in no apparent distress. HEAD: Normocephalic/atraumatic. EYES: Normal reaction of pupils, equal size. Conjunctiva pink, sclera white. NOSE: Clear with pink turbinates. THROAT: No erythema or exudates. NECK: No masses, no JVD, no thyroid enlargement, no adenopathy. CHEST: No chest wall deformity. Symmetrical expansion. LUNGS: Equal air entry with coarse bibasilar crackles, improved with diuretics with minimal faint crackles are present CVS: Regular rate and rhythm, normal S1 and S2, no gallops, no murmurs, no rubs ABDOMEN: Soft, nontender. No hepatosplenomegaly, normal bowel sounds, no guarding or rigidity. EXTREMITIES: No clubbing, no edema, no cyanosis, 2+ pulses and upper and lower extremities. MUSCULOSKELETAL: Muscle strength and tone normal. SPINE: No scoliosis or deformity SKIN: No rashes CENTRAL NERVOUS SYSTEM: Alert and oriented -3. No focal deficits, tone is normal in all 4 extremities. PSYCHIATRIC: Alert and oriented -3. Appropriate affect. Intact judgment and insight. - Labs CBC & Chem 7: 05/19/17 06:17 05/20/17 06:06 Labs: Abnormal Lab Results - Last 24 Hours (Table) 05/19/17 05/19/17 05/20/17 Range/Units 16:23 20:30 05:41 Carbon Dioxide (22-30) mmol/L BUN (9-20) mg/dL Glucose (74-99) mg/dL POC Glucose (mg/dL) 106 H 105 H 110 H (75-99) mg/dL 05/20/17 Range/Units 06:06 Carbon Dioxide 31 H (22-30) mmol/L BUN 29 H (9-20) mg/dL Glucose 106 H (74-99) mg/dL POC Glucose (mg/dL) (75-99) mg/dL Microbiology - Last 24 Hours (Table) 05/17/17 08:43 Blood Culture - Preliminary Blood No Growth after 72 hours 05/17/17 16:44 Blood Culture - Preliminary Blood No Growth after 48 hours 05/18/17 09:00 Urine Culture - Final Urine,Clean Catch Assessment and Plan Plan: Impression: #1 acute on top of chronic dyspnea currently under investigation. CT angios the chest was noted and the patient may have an underlying questionable subsegmental pulmonary embolism involving the left lower lobe pulmonary artery branches. Nevertheless, the rest of the CAT scan findings is consistent with fluid overload, pulmonary edema and development of a right-sided pleural effusion and all these are inconsistent with his history of CHF. The patient improved significantly with diuretics. His current body weight is down to 75 KG 's. I think the patient's overall presentation was most consistent with CHF rather pulmonary embolism. Is currently on Lasix 60 mg by mouth twice a day. He is also on Eliquis. #2 Acute exacerbation of chronic systolic congestive heart failure with a ejection fraction 20% to 25%. The patient has severe ischemic artery myopathy with a previous biventricular AICD placement #3 acute leukocytosis, acute lactic acidosis mild which is currently under investigation. Rule out underlying infection/sepsis #4 Coronary artery disease with previous coronary artery bypass grafting. #5 Chronic obstructive pulmonary disease, currently inactive and stable. #6 Hyperlipidemia. #7 Hypertension. #8 Gastroesophageal reflux disease. #9 Remote history of smoking for greater than 30 years however quit in 2003. #10 Carotid artery disease with previous carotid endarterectomy #11 Prostatic hypertrophy. Plan Continue diuretics. The follow-up chest x-ray shows a small right-sided pleural effusion. For the most part the pulmonary edema is recovered and the patient is improved considerably. The patient is also on anticoagulation. Patient is currently on room air. I do not see the need for thoracentesis at this point. The pleural effusion on the right is smaller the patient is feeling considerably better. Optimize CHF. Monitor her dry weight of 74-75 kg. We'll continue to follow.
[2017-05-20 17:00] VITALS: BP 139/76; PULSE 58
--- NOTE | 2017-05-21 04:19 | DS ---
DISCHARGE SUMMARY DATE OF ADMISSION: May 17, 2017. DATE OF DISCHARGE: May 20, 2017. FINAL DIAGNOSES: 1. Acute on chronic congestive heart failure exacerbation from systolic dysfunction ejection fraction 20 to 25% from underlying coronary artery disease. 2. Coronary artery disease with prior history of coronary artery bypass. 3. Probably small acute pulmonary embolism. 4. Leukocytosis, cause unclear. No source of infection noted. 5. Chronic obstructive pulmonary disease in an ex-smoker. 6. Hyperlipidemia. 7. Essential hypertension. 8. Gastroesophageal reflux disease. 9. AICD. 10.Benign prostatic hypertrophy. 11.History of atrial fibrillation. HOSPITAL COURSE: This very pleasant gentleman was admitted with increasing shortness of breath found to be in congestive heart failure, predominantly. Patient did respond well to IV Lasix. Symptoms greatly improved. Patient also was found to have pulmonary embolism. It was not entirely felt that this could be the main reason for his presentation, but the latter of the CHF. The patient was therefore anyway put on Eliquis. At the time of discharge, overall doing much better. Up and about, felt back to his baseline. Patient's creatinine is 1. The patient did have elevated white count and no reason for the same. This can be repeated as an outpatient. Further workup accordingly. Care was discussed in detail with the patient today. EXAMINATION: Lungs fair entry. Cardiovascular 1st and 2nd sounds normal. No edema. Psych AO x3. CONSULTATIONS: Dr. Vega from Pulmonary, Dr. Placido Rojas from Cardiology. Additionally patient's 2D echo showed EF of 20 to 25%. The patient has got an AICD in place and evidence of secondary pulmonary hypertension. DISCHARGE MEDICATIONS: 1. Aspirin 81 mg p.o. q.h.s. 2. Lansoprazole 20 mg p.o. b.i.d. 3. Toprol-XL 50 mg p.o. daily. 4. Pravachol 80 mg q.h.s. 5. Amiodarone 200 mg p.o. daily. 6. Singulair 10 mg q.h.s. 7. Januvia 100 mg p.o. daily. 8. Zestril 2.5 q.h.s. 9. MiraLAX 17 g p.o. daily. 10.Ventolin 2.5 q.6h p.r.n. 11.Cetirizine 10 mg p.o. daily. 12.Prozac 10 mg p.o. daily. 13.Amitiza 24 mcg p.o. daily p.r.n. 14.Xanax 0.25 q.h.s. p.r.n. 15.Eliquis as directed. 16.Lasix 40 mg p.o. b.i.d. 17.Aldactone 12.5 p.o. daily. CBC and BMP in 3 days. FOLLOWUP: Follow up with Dr. Mccrary on May 25, 2017, Dr. Dav Hall on May 27, 2017. Discussion and discharge planning more than 35 minutes. Additionally, patient has got a free starter pack of Eliquis from the pharmacy. Copy to Dr. Mccrary. ARTEMIO / KENYETTAN: [id number] /
[2017-05-26] MEDS ORDERED: APIXABAN 5 MG TAB PO SCH (09:00)
== END 2017-05-20 18:33 | disposition home or self-care (01) | DRG 291 ==
LOC: EC 08:38 → 6SEL 12:21
PROVIDERS: ADMIT Hospitalist; ATTEND Hospitalist
DX: I11.0 Hypertensive heart disease with heart failure (principal); I26.99 Other pulmonary embolism without acute cor pulmonale; E87.2 Acidosis; I25.5 Ischemic cardiomyopathy; I25.10 Atherosclerotic heart disease of native coronary artery without angina pectoris; E11.65 Type 2 diabetes mellitus with hyperglycemia; D72.829 Elevated white blood cell count, unspecified; I50.23 Acute on chronic systolic (congestive) heart failure; E78.5 Hyperlipidemia, unspecified; F17.200 Nicotine dependence, unspecified, uncomplicated; I25.2 Old myocardial infarction; I48.2 Chronic atrial fibrillation; J43.9 Emphysema, unspecified; K21.9 Gastro-esophageal reflux disease without esophagitis; N40.0 Benign prostatic hyperplasia without lower urinary tract symptoms; R09.02 Hypoxemia; Z79.01 Long term (current) use of anticoagulants; Z79.4 Long term (current) use of insulin; Z79.82 Long term (current) use of aspirin; Z82.49 Family history of ischemic heart disease and other diseases of the circulatory system; Z83.3 Family history of diabetes mellitus; Z95.1 Presence of aortocoronary bypass graft; Z95.810 Presence of automatic (implantable) cardiac defibrillator; Z79.899 Other long term (current) drug therapy; Z88.6 Allergy status to analgesic agent; Z88.0 Allergy status to penicillin
CPT/HCPCS: 36415; 36600; 51702; 71045; 71046; 71275; 76604; 80048; 80053; 81001; 82550; 82553; 82805; 83036; 83605; 83735; 83880; 84145; 84484; 85025; 85610; 85730; 87040; 87086; 93306; 93970; 94640; 94644; 94660; 96365; 96366; 96372; 96375; 96376; 99291

== ENCOUNTER → 2018-02-02 | Outpatient (CLI) | payer MEDICARE ==
--- NOTE | 2018-02-02 12:21 | US ---
EXAMINATION TYPE: US abdomen complete DATE OF EXAM: 02/02/2018 COMPARISON: CT abdomen 10/17/15 CLINICAL HISTORY: K76.89 ABN LIVER FUNCTIONS. EXAM MEASUREMENTS: Liver Length: 16.9 cm Gallbladder Wall: Surgically absent cm CBD: 0.4 cm Spleen: 9.6 cm Right Kidney: 9.8 x 5.8 x 4.5 cm Left Kidney: 10.9 x 6.1 x 5.6 cm Pancreas: duct = 0.3 cm, hypoechoic area near head of pancreas = 2.1 x 2.1 x 1.4 cm, ? within pancr eas or adjacent. Sub optimal visualization of pancreas d/t overlying bowel gas. Tail not well seen. Liver: wnl Gallbladder: Surgically absent Evidence for sonographic Rivera's sign: No CBD: wnl Spleen: wnl Right Kidney: Lower pole cyst = 2.5 x 2.2 x 2.4 cm Left Kidney Multiple cysts throughout kidney. Largest lower pole = 4.5 x 3.3 x 3.0 with septations. Upper IVC: wnl Abd Aorta: wnl The visualized liver is heterogeneous. Evaluation for focal masses is suboptimal due to the heteroge neity. The intrahepatic portion of the IVC and visualized abdominal aorta are within normal limits. G allbladder is surgically absent. Common bile duct is unremarkable. The visualized portions of the p ancreas are homogenous. Duct is identified but measures upper limits of normal. Technologist oropeza v ague lesion near head of pancreas believed external to pancreas. Hypodense oval well-defined area unc inate process noted on prior CT axial image 29. Follow-up is advised. The spleen is unremarkable. Ki dneys are symmetric and free of hydronephrosis. Several simple appearing cysts are scattered througho ut images of the left kidney. IMPRESSION: Suboptimal study, suspect persistent diffuse fatty infiltration of liver. Cannot exclude persistent lesion head/uncinate process of pancreas. Advise further investigation with repeat pancrea s protocol CT/MRI to further evaluate.
== END | disposition home or self-care (01) ==
LOC: RADUSWWP 07:40
PROVIDERS: ATTEND Internal Medicine
DX: K76.89 Other specified diseases of liver (principal)
CPT/HCPCS: 76700

== ENCOUNTER 2018-02-18 09:42 | Day surgery (SDC) | payer MEDICARE ==
[2018-02-12 10:53] VITALS: BMI 25.4
[~2018-02-18 09:42] MED LIST changes: -MAGNESIUM CITRATE 296 ML BOTTLE ONE; +SODIUM CHLORIDE 0.9% 1,000 ML IV SCH
[2018-02-18 10:10] LABS: Glucose,Whole Blood 90 mg/dL (75-99)
[2018-02-18 10:36] VITALS: TEMP 98
[2018-02-18] MEDS ORDERED: IV FLUID CONTINUATION 450 ML IV ONE (11:46)
[2018-02-18] MEDS ORDERED: PROPOFOL 10 MG/ML 20 ML VIAL IV ONE (11:46)
[2018-02-18] MEDS ORDERED: MIDAZOLAM 2 MG/2 ML VIAL ONE (11:46)
[2018-02-18] MEDS ORDERED: ePHEDrine SULFATE/0.9% NACL/PF 50 MG/5 ML SYRINGE IV ONE (11:46)
[2018-02-18 14:18] VITALS: PULSE 62
[2018-02-18 14:23] VITALS: BP 128/67; RESP 18
--- NOTE | 2018-02-26 12:49 | PCN ---
Preoperative Diagnosis: Diagnosis Cardiomyopathy Dual-chamber biventricular ICD Procedures performed Any fluoroscopy of the leads Biventricular ICD testing and anesthesia were/defibrillation level testing Bi V ICD interrogation and reprogramming Cinefluoroscopy of the leads was performed rate atrial lead in right atrial appendage LV lead,*fix, [employer], in the posterior lateral vein Dual coil ICD lead no fractures or breaks Atrial pacing impedance 456 ohms, RV pacing impedance 380 ohms and LV pacing impedance 390 ohms RV coil 47 ohms, SVC coil 60 ohms Atrial pacing threshold 1 warted 0.4 ms, RV pacing threshold 0.9 V at 0.4 ms and LV pacing threshold 1.3 V at 1 ms Defibrillation level testing under anesthesia. VF induced. VF detected appropriately without any dropouts with a charge time of 2.1 seconds shocking impedance 48 ohms no post shock noise Device was then reprogrammed, ventricular tachycardia monitoring zone 150 beats a minute, VT zone for therapy 176 beats a minute VF zone 214 beats a minute appropriate antitachycardia pacing cardioversion and defibrillation programmed pacing parameter changes made increase sensor rate Impression Cinefluoroscopy of biventricular ICD leads within normal limits no fractures or breaks noted DFT at about 10 J Appropriate sensing of ventricular fibrillation Biventricle ICD interrogated and reprogrammed [facility]
== END 2018-02-18 14:15 | disposition home or self-care (01) ==
LOC: CATHEP 09:42
PROVIDERS: ATTEND Internal Medicine Clinical Cardiac Electrophysiology
DX: I25.5 Ischemic cardiomyopathy (principal); Z45.02 Encounter for adjustment and management of automatic implantable cardiac defibrillator; I11.0 Hypertensive heart disease with heart failure; I50.22 Chronic systolic (congestive) heart failure; Z72.0 Tobacco use; E78.2 Mixed hyperlipidemia; Z82.49 Family history of ischemic heart disease and other diseases of the circulatory system; Z88.0 Allergy status to penicillin; I25.2 Old myocardial infarction; Z95.1 Presence of aortocoronary bypass graft; Z79.01 Long term (current) use of anticoagulants; Z79.84 Long term (current) use of oral hypoglycemic drugs; Z79.82 Long term (current) use of aspirin; Z79.899 Other long term (current) drug therapy
CPT/HCPCS: 93642; J2250; J2704

== ENCOUNTER → 2018-03-12 | Outpatient (CLI) | payer MEDICARE ==
--- NOTE | 2018-03-12 15:26 | CT ---
EXAMINATION TYPE: CT pancreas biphase DATE OF EXAM: 03/12/2018 COMPARISON: October 17, 2015 HISTORY: pancreatic lesion/weight loss CT DLP: 1166 mGycm CONTRAST: CT scan of the abdomen and pelvis is performed and with IV Contrast, patient injected with 125 mL of Isovue 370. FINDINGS: LUNG BASES-: No visible nodule. No infiltrate. LIVER/GB: Cholecystectomy clips. No space occupying hepatic lesion. Biliary tree is of normal gume krishna. PANCREAS: No inflammation. No distinct mass. SPLEEN: Cystic lesion uncinate portion of the pancreas appears smaller in size on today's study and m easures 1.5 x 1.1 cm versus 2.6 cm previously. No new lesions identified. ADRENALS: No nodule. No thickening. KIDNEYS/BLADDER: No hydronephrosis. No nephrolithiasis. Renal cystic changes noted. BOWEL: Normal appendix. Normal bowel caliber. No inflammation. GENITAL ORGANS: No gross abnormality. LYMPH NODES: No greater than 1cm abdominal or pelvic lymph nodes are appreciated. AORTA: No significant abnormality. OSSEOUS STRUCTURES: No significant abnormality is seen. OTHER: No significant additional abnormality is seen. IMPRESSION: 1. Cystic lesion uncinate portion of the pancreas appears smaller in size on today's study and measur es 1.5 x 1.1 cm versus 2.6 cm previously.
== END | disposition home or self-care (01) ==
LOC: RADCTMAIN 12:54
PROVIDERS: ATTEND Internal Medicine
DX: K86.2 Cyst of pancreas (principal)
CPT/HCPCS: 82565; 84520; 36415; 74160; Q9967